=== PATIENT | male | born 1980 | race Caucasian/White ===

== ENCOUNTER → 2019-02-04 | Outpatient (CLI) | payer SELFPAY ==
[~2019-02-04] MED LIST: HOLD METFORMIN - RECEIVED CONTRAST 20 ML VIAL IV SCH; IOHEXOL 350 MG/ML 100 ML (OMNIPAQUE 350) VIAL IV ONE; NS 100 ML (IVPB) BAG IV ONE
--- NOTE | 2019-02-04 16:39 | Diagnostic Imaging Report ---
PROCEDURE: CT abdomen and pelvis with contrast. TECHNIQUE: Multiple contiguous axial images were obtained through the abdomen and pelvis after administration of intravenous contrast. Auto Exposure Controls were utilized during the CT exam to meet ALARA standards for radiation dose reduction. INDICATION: Left upper quadrant abdominal pain and persistent nausea COMPARISON: There is no previous study available at this time for comparison. FINDINGS: There is no focal hepatic or splenic abnormality. Gallbladder is unremarkable in appearance. There is no evidence of pancreatic or adrenal gland abnormality. There is an approximately 1 cm cyst in the central left kidney. Kidneys are otherwise unremarkable in appearance. There is no evidence of free fluid. There is paucity of mesenteric and omental fat with moderate amount of colonic stool seen diffusely. There is no evidence of organized fluid collection. The partially opacified urinary bladder is unremarkable. IMPRESSION: No acute abnormality. Dictated by: Dictated on workstation # [id number]
== END ==
LOC: RAD 15:11
PROVIDERS: ATTEND Nurse Practitioner
DX: R10.12 Left upper quadrant pain (principal); R11.0 Nausea
CPT/HCPCS: 74177

== ENCOUNTER 2019-08-03 19:08 | Emergency (ER) | payer SELFPAY ==
[~2019-08-03] VITALS: Ht 167.7 cm; Wt 54.4 kg
[2019-08-03] MEDS ORDERED: ACETAMINOPHEN 500 MG TAB (TYLENOL) PO STA (19:50)
[2019-08-03] MEDS ORDERED: LACTATED RINGERS 1,000 ML IV ONE ×2 (19:50→21:35)
[2019-08-03] MEDS ORDERED: KETOROLAC 30 MG/ML VIAL IVP STA (19:50)
[2019-08-03] MEDS ORDERED: ONDANSETRON 4 MG/2 ML (SDV) Z0FRAN IVP ONE (20:00)
--- NOTE | 2019-08-03 20:00 | ED Abdominal Pain ---
General Chief Complaint: Abdominal/GI Problems Stated Complaint: ABD PAIN, FEVER, NECK PAIN Nursing Triage Note: PT TO ED W/ C/O LUQ ABD PAIN ONSET YESTERDAY, WORSE TODAY. PT'S S.O. REPORTS THEY WERE SENT TO THIS ED FROM URGENT CARE PT HAD AN ELEVATED TEMP. PT STATES HAD SIMILAR SYMPTOMS LAST SUMMER. NO OTHER C/O VOICED TO THIS RN. PT DOES ADMIT TO SMOKING METH ET MARIJUANA W/IN THE LAST WEEK. Sepsis Screen: No Definite Risk Source of Information: Patient Exam Limitations: No Limitations History of Present Illness Date Seen by Provider: Aug 03, 2019 Time Seen by Provider: 19:42 Initial Comments Here with report of acute onset of left upper quadrant abdominal pain that was yesterday and worsened today. Went to urgent care and was sent over here because he had a high fever. He arrives afebrile. He's had on and off left upper quadrant abdominal pain over the last year. Has had workup for that including CT scan last month that was negative as well as ultrasound that was reportedly negative. Also complains of neck pain that started a few weeks ago was quite bad at the time of onset but it's better now. He still feels it but it is better. Notes the pain is at the base of the neck laterally. 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 Timing/Duration: 1-2 Days Severity/Quality: Moderate, Aching Location: LUQ Radiation: No Radiation Activities at Onset: None Modifying Factors: Worsens With Other (no aggravating or relieving factors) Associated Symptoms: No Back Pain, No Chest Pain; Fever/Chills, Fatigue, Nausea/Vomiting; No Shortness of Air, No Weakness Allergies and Home Medications Allergies Coded Allergies: No Allergy Information Available (Unverified , 02/04/19) Patient Home Medication List Home Medication List Reviewed: Yes Review of Systems Review of Systems Constitutional: see HPI, chills, fever EENTM: No Symptoms Reported Respiratory: Denies Cough, Denies Shortness of Air Cardiovascular: Denies Chest Pain, Denies Edema Gastrointestinal: Denies Diarrhea; Nausea; Denies Vomiting Genitourinary: No Symptoms Reported Musculoskeletal: see HPI, muscle pain; No muscle weakness; neck pain Skin: no symptoms reported Psychiatric/Neurological: No Symptoms Reported All Other Systems Reviewed Negative Unless Noted: Yes Past Ngsgacd-Gozmrg-Bwqcwu Hx Past Med/Social Hx: Reviewed Nursing Past Med/Soc Hx Patient Social History Alcohol Use: Denies Use Recreational Drug Use: Yes Drug of Choice: MARIJUANA, METH Smoking Status: Current Everyday Smoker Type Used: Cigarettes Recent Foreign Travel: No Contact w/Someone Who Travel: No Recent Infectious Disease Expo: No Physical Abuse: No Sexual Abuse: No Mistreated: No Fear: No Past Medical History Surgeries: No Respiratory: No Cardiac: No Neurological: No Genitourinary: No Gastrointestinal: No Musculoskeletal: No Endocrine: No HEENT: No Cancer: No Psychosocial: No Family Medical History Reviewed Nursing Family Hx No Pertinent Family Hx Physical Exam Vital Signs Vital Signs - First Documented 08/03/19 19:18 Temp 37.2 Pulse 111 Resp 20 B/P (MAP) 124/87 (99) Pulse Ox 100 O2 Delivery Room Air Capillary Refill : Less Than 3 Seconds Height/Weight/BMI Height: '" Weight: lbs. oz. kg; 19.00 BMI Method: General Appearance: WD/WN, no apparent distress HEENT: PERRL/EOMI, TMs normal, pharynx normal Neck: full range of motion, supple Respiratory: lungs clear, normal breath sounds Cardiovascular: no murmur, tachycardia Peripheral Pulses: 2+ Dorsalis Pedis (R), 2+ Left Dors-Pedis (L), 2+ Radial Pulses (R), 2+ Radial Pulses (L) Gastrointestinal: soft; No guarding, No rebound; tenderness (mild left upper quadrant) Extremities: non-tender, normal inspection Back: normal inspection, no CVA tenderness, no vertebral tenderness Neurologic/Psychiatric: alert, oriented x 3 Skin: normal color, warm/dry Focused Exam Lactate Level 08/03/19 21:06: Lactic Acid Level 2.83*H Lactic Acid Level Laboratory Tests Test 08/03/19 21:06 Lactic Acid Level 2.83 MMOL/L (0.50-2.00) *H Progress/Results/Core Measures Results/Orders Lab Results Laboratory Tests Test 08/03/19 19:49 08/03/19 21:06 Range/Units White Blood Count 18.2 H 4.3-11.0 10^3/uL Red Blood Count 5.17 4.35-5.85 10^6/uL Hemoglobin 15.8 13.3-17.7 G/DL Hematocrit 46 40-54 % Mean Corpuscular Volume 88 80-99 FL Mean Corpuscular Hemoglobin 31 25-34 PG Mean Corpuscular Hemoglobin Concent 35 32-36 G/DL Red Cell Distribution Width 12.9 10.0-14.5 % Platelet Count 494 H 130-400 10^3/uL Mean Platelet Volume 8.8 7.4-10.4 FL Neutrophils (%) (Auto) 86 H 42-75 % Lymphocytes (%) (Auto) 6 L 12-44 % Monocytes (%) (Auto) 7 0-12 % Eosinophils (%) (Auto) 0 0-10 % Basophils (%) (Auto) 0 0-10 % Neutrophils # (Auto) 15.6 H 1.8-7.8 X 10^3 Lymphocytes # (Auto) 1.2 1.0-4.0 X 10^3 Monocytes # (Auto) 1.3 H 0.0-1.0 X 10^3 Eosinophils # (Auto) 0.1 0.0-0.3 10^3/uL Basophils # (Auto) 0.0 0.0-0.1 10^3/uL Neutrophils % (Manual) 82 % Lymphocytes % (Manual) 7 % Monocytes % (Manual) 10 % Eosinophils % (Manual) 0 % Basophils % (Manual) 0 % Band Neutrophils 1 % Smudge Cells SLIGHT Sodium Level 139 135-145 MMOL/L Potassium Level 4.3 3.6-5.0 MMOL/L Chloride Level 104 98-107 MMOL/L Carbon Dioxide Level 22 21-32 MMOL/L Anion Gap 13 5-14 MMOL/L Blood Urea Nitrogen 13 7-18 MG/DL Creatinine 0.80 0.60-1.30 MG/DL Estimat Glomerular Filtration Rate > 60 BUN/Creatinine Ratio 16 Glucose Level 97 70-105 MG/DL Calcium Level 9.5 8.5-10.1 MG/DL Corrected Calcium 9.3 8.5-10.1 MG/DL Magnesium Level 1.9 1.6-2.4 MG/DL Total Bilirubin 0.9 0.1-1.0 MG/DL Aspartate Amino Transf (AST/SGOT) 16 5-34 U/L Alanine Aminotransferase (ALT/SGPT) 15 0-55 U/L Alkaline Phosphatase 67 40-136 U/L C-Reactive Protein High Sensitivity 0.56 H 0.00-0.50 MG/DL Total Protein 7.4 6.4-8.2 GM/DL Albumin 4.3 3.2-4.5 GM/DL Amylase Level 69 25-125 U/L Lipase 39 8-78 U/L Urine Color YELLOW Urine Clarity CLEAR Urine pH 7.5 5-9 Urine Specific [place] 1.010 L 1.016-1.022 Urine Protein NEGATIVE NEGATIVE Urine Glucose (UA) NEGATIVE NEGATIVE Urine Ketones NEGATIVE NEGATIVE Urine Nitrite NEGATIVE NEGATIVE Urine Bilirubin NEGATIVE NEGATIVE Urine Urobilinogen 0.2 < = 1.0 MG/DL Urine Leukocyte Esterase NEGATIVE NEGATIVE Urine RBC (Auto) NEGATIVE NEGATIVE Urine RBC NONE /HPF Urine WBC NONE /HPF Urine Squamous Epithelial Cells RARE /HPF Urine Crystals NONE /LPF Urine Bacteria NEGATIVE /HPF Urine Casts NONE /LPF Urine Mucus NEGATIVE /LPF Urine Culture Indicated NO Lactic Acid Level 2.83 *H 0.50-2.00 MMOL/L Micro Results Microbiology 08/03/19 Blood Culture - Preliminary, Resulted No growth 08/03/19 Blood Culture - Preliminary, Resulted No growth 08/03/19 Influenza Types A,B Antigen ([facility]) - Final, Complete My Orders Orders - JOSE ARMANDO TRAN MD Amylase (08/03/19 19:50) Cbc With Automated Diff (08/03/19 19:50) Comprehensive Metabolic Panel (08/03/19 19:50) Hs C Reactive Protein (08/03/19 19:50) Lipase (08/03/19 19:50) Magnesium (08/03/19 19:50) Ua Culture If Indicated (08/03/19 19:50) Influenza A And B Antigens (08/03/19 19:50) Ed Iv/Invasive Line Start (08/03/19 19:50) Lactated Ringers (Lr 1000 Ml Iv Solution (08/03/19 19:50) Ondansetron Injection (Zofran Injectio (08/03/19 20:00) Acetaminophen Tablet (Tylenol Tablet) (08/03/19 19:50) Ketorolac Injection (Toradol Injection) (08/03/19 19:50) Manual Differential (08/03/19 19:49) Ct Abdomen/Pelvis W (08/03/19 20:25) Chest Pa/Lat (2 View) (08/03/19 20:25) Lactic Acid Analyzer (08/03/19 20:25) Blood Culture (08/03/19 20:25) Iohexol Injection (Omnipaque 350 Mg/Ml 1 (08/03/19 20:30) Received Contrast (Hold Metformin- Contr (08/03/19 20:30) Sodium Chloride Flush (Catheter Flush Sy (08/03/19 20:30) Ns (Ivpb) (Sodium Chloride 0.9% Ivpb Bag (08/03/19 20:30) Lidocaine 2% Viscous 15 Ml (Xylocaine Vi (08/03/19 21:30) Antacid Suspension (Mylanta Suspension (08/03/19 21:30) Famotidine Injection (Pepcid Injection) (08/03/19 21:20) Lactated Ringers (Lr 1000 Ml Iv Solution (08/03/19 21:35) Fentanyl Injection (Sublimaze Injection (08/03/19 21:36) Medications Given in ED Vital Signs/I&O 08/03/19 08/03/19 08/03/19 08/03/19 19:18 20:06 21:15 21:53 Temp 37.2 37.6 37.6 37.6 Pulse 111 111 99 Resp 20 20 20 B/P (MAP) 124/87 (99) 124/87 124/85 (99) Pulse Ox 100 100 99 O2 Delivery Room Air Room Air Blood Pressure Mean: 99 Progress Progress Note : Progress Note Seen and evaluated. IV, labs, UA, LR 1 L bolus, Toradol 30 mg IV, Tylenol 1 g by mouth, Zofran 4 mg by mouth ordered. I have reviewed CT scan that he says was done a month ago and it was actually done 6 months ago. It was negative for any acute findings. Monitor patient. 2120: So far workup is negative except for elevated white count. Does report that he had markedly increasing his pain after eating a banana for lunch and has had problems with acid and this may be more of the issue. CT does shows constipation and he does have a full stomach. He states he has not eaten much today but with the constipation this may just be slow transit. We will give Pepcid 20 mg IV and GI cocktail. I did discuss with him the importance of follow-up with a surgeon for further evaluation including endoscopy. He will try to figure out a way to do that given his finances. UA is pending. Monitor patient. 2140: Patient overall feels much better. Lactic acid noted to be slightly elevated. I discussed this with the patient. I would like to do repeat fluids and recheck that but he does not want to stay. We discussed risk and benefits of this including that he may have something more significant. He states that he will come back if he has any problems but overall he feels better now. He will continue with the instructions that were given and return for any concerns. I again encouraged him to stay and he would like to go ahead and go. Discharged home with return precautions. Patient verbalize understanding instructions and agreement with plan. Diagnostic Imaging Diagonstic Imaging: CT Plain Films/CT/US/NM/MRI: abdomen, pelvis Comments [facility] [place] [place] NAME: NELLY PEREZ [facility] REC#: [id number] PT STATUS: REG ER : 1980 PHYSICIAN: JOSE ARMANDO TRAN MD ADMIT DATE: 08/03/19/ER Draft Date of Exam:08/03/19 CT ABDOMEN/PELVIS W PROCEDURE: CT abdomen and pelvis with contrast. TECHNIQUE: Multiple contiguous axial images were obtained through the abdomen and pelvis after administration of intravenous contrast. Auto Exposure Controls were utilized during the CT exam to meet ALARA standards for radiation dose reduction. INDICATION: Pain in the left lower chest and left upper quadrant. COMPARISON: 02/04/2019. FINDINGS: The lung bases are clear. The liver, gallbladder, pancreas, spleen, adrenals, kidneys, collecting systems and bladder are negative. No free intraperitoneal air or fluid. No lymphadenopathy. No evidence of bowel obstruction. There is a large amount of stool throughout the colon. Osseous structures are intact. IMPRESSION: 1. No acute CT findings in the abdomen or pelvis. 2. Large amount of stool in the colon would be compatible with constipation. Dictated on workstation # [id number] Dict: 08/03/192057 Trans: 08/03/192100 MELVINA [id number] Interpreted by: CURTIS GARIBAY MD Electronically signed by: Diagonstic Imaging: Xray Plain Films/CT/US/NM/MRI: chest Comments [facility] [place] [place] NAME: NELLY PEREZ [facility] REC#: [id number] PT STATUS: REG ER : 1980 PHYSICIAN: JOSE ARMANDO TRAN MD ADMIT DATE: 08/03/19/ER Draft Date of Exam:08/03/19 CHEST PA/LAT (2 VIEW) EXAM: CHEST PA/LAT (2 VIEW) INDICATION: Pain in the left lower chest and left upper quadrant. COMPARISON: None. FINDINGS: Normal heart size and pulmonary vascularity. No dense consolidation, pleural effusion or pneumothorax. No acute osseous findings. IMPRESSION: Negative chest. Dictated on workstation # [id number] Dict: 08/03/192099 Trans: 08/03/19 2102 MELVINA [id number] Interpreted by: CURTIS GARIBAY MD Electronically signed by: Departure Impression Primary Impression: Abdominal pain, left upper quadrant Additional Impression: Constipation Qualified Codes: K59.00 - Constipation, unspecified Disposition: HOME, SELF-CARE Condition: Stable Departure-Patient Inst. Decision time for Depature: 21:24 Referrals: QUINN OVALLES DO NO,LOCAL PHYSICIAN (PCP) Primary Care Physician Patient Instructions: Acute Abdomen (Belly Pain), Adult (DC), Constipation, Adult (DC) Add. Discharge Instructions: All discharge instructions reviewed with patient and/or family. Voiced understanding. Drink plenty of fluids. Clear light diet for the next 24 hours and then advance as tolerated. You lactic acid was slightly elevated and we did not get a second exam on that. It is very important that he return if you have any worsening at all. You may take cktf-vmi-captrin omeprazole 20 mg daily and you may try this for up to the next 6 weeks. You may also take famotidine or Pepcid 20 mg once or twice daily as needed for stomach upset. For the constipation, increase fluid intake and fiber intake. You may use MiraLAX or the generic one capful twice daily for the next 3 days and then one capful daily thereafter as needed to produce normal stools. You may increase or decrease the dose as needed to get normal bowel habits. You should follow-up with the surgeon listed order choosing for further evaluation including possible upper endoscopy to evaluate for ulcers. You may also follow-up with [facility] for referral to a surgeon. Return for worse pain, fever, vomiting, weakness, breathing problems or other concerns as needed. You may take Tylenol/acetaminophen 1000 mg every 8 hours as needed for pain. Try to avoid ibuprofen as this may irritate your stomach. Avoid acidic foods, spicy or fatty foods and other foods that cause stomach upset. JOSE ARMANDO TRAN MD Aug 03, 2019 20:00
[2019-08-03 20:01] LABS: BASOPHILS % (AUTO) 0 % (0-10); EOSINOPHILS # (AUTO) 0.1 10^3/uL (0.0-0.3); EOSINOPHILS % (AUTO) 0 % (0-10); HEMATOCRIT 46 % (40-54); HEMOGLOBIN 15.8 G/DL (13.3-17.7); LYMPHOCYTES # (AUTO) 1.2 X 10^3 (1.0-4.0); LYMPHOCYTES % (AUTO) 6 % (12-44); MEAN CORPUSCULAR HEMOGLOBIN 31 PG (25-34); MEAN CORPUSCULAR HGB CONC 35 G/DL (32-36); MEAN CORPUSCULAR VOLUME 88 FL (80-99); MEAN PLATELET VOLUME 8.8 FL (7.4-10.4); MONOCYTES # (AUTO) 1.3 X 10^3 (0.0-1.0); MONOCYTES % (AUTO) 7 % (0-12); NEUTROPHILS # (AUTO) 15.6 X 10^3 (1.8-7.8); NEUTROPHILS % (AUTO) 86 % (42-75); PLATELET COUNT 494 10^3/uL (130-400); RED CELL DISTRIBUTION WIDTH 12.9 % (10.0-14.5); WHITE BLOOD COUNT 18.2 10^3/uL (4.3-11.0)
[2019-08-03 20:18] LABS: ALANINE AMINOTRANSFERASE 15 U/L (0-55); ALBUMIN 4.3 GM/DL (3.2-4.5); ALKALINE PHOSPHATASE 67 U/L (40-136); AMYLASE 69 U/L (25-125); BILIRUBIN,TOTAL 0.9 MG/DL (0.1-1.0); BUN/CREATININE RATIO 16; CALCIUM 9.5 MG/DL (8.5-10.1); CARBON DIOXIDE 22 MMOL/L (21-32); CHLORIDE 104 MMOL/L (98-107); GFR ESTIMATED > 60; GLUCOSE 97 MG/DL (70-105); LIPASE 39 U/L (8-78); MAGNESIUM 1.9 MG/DL (1.6-2.4); POTASSIUM 4.3 MMOL/L (3.6-5.0); SODIUM 139 MMOL/L (135-145); TOTAL PROTEIN 7.4 GM/DL (6.4-8.2)
[2019-08-03 20:24] LABS: BAND NEUTROPHILS 1 %; BASOPHILS % (MANUAL) 0 %; EOSINOPHILS % (MANUAL) 0 %; LYMPHOCYTES % (MANUAL) 7 %; MONOCYTES % (MANUAL) 10 %; NEUTROPHILS % (MANUAL) 82 %; SMUDGE CELLS SLIGHT
[2019-08-03] MEDS ORDERED: CATHETER FLUSH 10 ML SYR IV PRN (20:30)
[2019-08-03] MEDS ORDERED: IOHEXOL 350 MG/ML 100 ML (OMNIPAQUE 350) VIAL IV ONE (20:30)
[2019-08-03] MEDS ORDERED: NS 100 ML (IVPB) BAG IV ONE (20:30)
[2019-08-03] MEDS ORDERED: HOLD METFORMIN - RECEIVED CONTRAST 20 ML VIAL IV SCH (20:30)
--- NOTE | 2019-08-03 21:02 | Diagnostic Imaging Report ---
PROCEDURE: CT abdomen and pelvis with contrast. TECHNIQUE: Multiple contiguous axial images were obtained through the abdomen and pelvis after administration of intravenous contrast. Auto Exposure Controls were utilized during the CT exam to meet ALARA standards for radiation dose reduction. INDICATION: Pain in the left lower chest and left upper quadrant. COMPARISON: 02/04/2019. FINDINGS: The lung bases are clear. The liver, gallbladder, pancreas, spleen, adrenals, kidneys, collecting systems and bladder are negative. No free intraperitoneal air or fluid. No lymphadenopathy. No evidence of bowel obstruction. There is a large amount of stool throughout the colon. Osseous structures are intact. IMPRESSION: 1. No acute CT findings in the abdomen or pelvis. 2. Large amount of stool in the colon would be compatible with constipation. Dictated by: Dictated on workstation # [id number]
--- NOTE | 2019-08-03 21:03 | Diagnostic Imaging Report ---
EXAM: CHEST PA/LAT (2 VIEW) INDICATION: Pain in the left lower chest and left upper quadrant. COMPARISON: None. FINDINGS: Normal heart size and pulmonary vascularity. No dense consolidation, pleural effusion or pneumothorax. No acute osseous findings. IMPRESSION: Negative chest. Dictated by: Dictated on workstation # [id number]
[2019-08-03 21:17] LABS: BILIRUBIN,URINE NEGATIVE (NEGATIVE); CLARITY,URINE CLEAR; COLOR,URINE YELLOW; GLUCOSE, URINE (UA) NEGATIVE (NEGATIVE); KETONES,URINE NEGATIVE (NEGATIVE); LEUKOCYTE ESTERASE ,URINE NEGATIVE (NEGATIVE); NITRITE,URINE NEGATIVE (NEGATIVE); PH,URINE 7.5 (5-9); PROTEIN,URINE NEGATIVE (NEGATIVE)
[2019-08-03] MEDS ORDERED: FAMOTIDINE 20MG/2ML IV (PEPCID) IV STA (21:20)
[2019-08-03 21:23] LABS: BACTERIA,URINE NEGATIVE /HPF; SQUAMOUS EPITHELIAL CELL,UR RARE /HPF
[2019-08-03] MEDS ORDERED: ANTACID SUSP 30 ML UDC (MYLANTA) PO ONE (21:30)
[2019-08-03] MEDS ORDERED: LIDOCAINE 2% VISCOUS 15 ML UDC PO ONE (21:30)
[2019-08-03] MEDS ORDERED: fentaNYL INJECTION 100 MCG/2 ML AMP IVP STA (21:36)
--- NOTE | 2019-08-03 21:37 | NUR ---
PT REFUSED GI COCKTAIL AND FENTANYL DOSE, PT STATES HE FEELS MUCH BETTER AND WOULD JUST LIKE HIS DISCHARGE PAPERWORK, PROVIDER NOTIFIED.
[2019-08-03 21:53] VITALS: BP 124/85
== END 2019-08-03 21:39 | disposition home or self-care (01) ==
LOC: EDUNIT# 19:08 → ER 19:10
DX: K59.00 Constipation, unspecified (principal); F17.210 Nicotine dependence, cigarettes, uncomplicated
CPT/HCPCS: 36415; 71046; 74177; 80053; 81000; 82150; 83605; 83690; 83735; 85007; 85027; 86141; 87040; 87804; 96361; 96374; 96375

== ENCOUNTER 2021-01-28 09:24 | Emergency (ER) | payer SELFPAY ==
[~2021-01-28] VITALS: Ht 167 cm; Wt 56.0 kg
[2021-01-28] MEDS ORDERED: ACETAMINOPHEN 500 MG TAB (TYLENOL) ONE (09:48)
[2021-01-28] MEDS ORDERED: ONDANSETRON 4 MG/2 ML (SDV) Z0FRAN ONE (09:50)
[2021-01-28] MEDS ORDERED: NS IV 1000 ML 1,000 ML ONE (09:51)
--- NOTE | 2021-01-28 09:57 | ED General ---
General Chief Complaint: Cough/Cold/Flu Symptoms Stated Complaint: LOSS OF TASTE, FEVER,COUGH, Nursing Triage Note: ARRIVED VIA AMB TO ROOM 10 WITH COMPLAINTS OF COUGH, FEVER, BODY ACHES FOR X2 DAYS. STATES HE PASSED OUT YESTERDAY. History of Present Illness Date Seen by Provider: Jan 28, 2021 Time Seen by Provider: 09:45 Initial Comments Nelly is a 40-year-old male who presents to the emergency department today with a chief complaint of cough, fever, body aches and a syncopal episode yesterday. Symptoms have been ongoing for a couple of days. He has had decreased appetite over the course of the last couple of days. He denies any injury is related to his syncopal episode yesterday. He has not taken any medications for his fever s. He is not Covid vaccinated. He complains that he feels like his ear is "bleeding". He complains of a little burning with urination. No diarrhea. No rashes or joint pain. He is having body aches. Temperature on arrival is a little bit greater than 102. He appears to feel bad. His room air oxygen saturation on my evaluation is 95%. He is slightly tachycardic in the 120s. Blood pressure is good. No chronic medical conditions, does not take any medications on a daily basis. All other review of systems reviewed and negative except as stated above. Timing/Duration: 1-2 Days Severity: Moderate Associated Systoms: Cough, Fever/Chills, Headaches, Loss of Appetite, Malaise Allergies and Home Medications Allergies Coded Allergies: No Allergy Information Available (Unverified , 02/04/19) Patient Home Medication List Home Medication List Reviewed: Yes Review of Systems Review of Systems Constitutional: see HPI EENTM: ear pain Respiratory: cough, short of breath Cardiovascular: no symptoms reported Gastrointestinal: nausea Genitourinary: dysuria Musculoskeletal: muscle pain, muscle cramps Skin: no symptoms reported Psychiatric/Neurological: No Symptoms Reported All Other Systems Reviewed Negative Unless Noted: Yes Past Rgydydb-Ymujqr-Ltmpgy Hx Patient Social History Smoking Status: Former Smoker Substance use?: No Alcohol Use?: No Past Medical History Surgeries: No Respiratory: No Cardiac: No Neurological: No Genitourinary: No Gastrointestinal: No Musculoskeletal: No Endocrine: No HEENT: No Cancer: No Psychosocial: No Family Medical History No Pertinent Family Hx Physical Exam Vital Signs Vital Signs - First Documented 01/28/21 09:35 Temp 39.3 Pulse 117 Resp 18 B/P (MAP) 113/74 (87) Pulse Ox 95 O2 Delivery Room Air Capillary Refill : Less Than 3 Seconds Height, Weight, BMI Height: '" Weight: lbs. oz. kg; 20.00 BMI Method: General Appearance: No Apparent Distress, WD/WN Eyes: Bilateral Eye Normal Inspection, Bilateral Eye PERRL, Bilateral Eye EOMI HEENT: TMs Normal (Slight effusion behind the left TM), Normal ENT Inspection (Dry oral mucosa) Neck: Non Tender, Supple Respiratory: No Accessory Muscle Use, No Respiratory Distress, Crackles (Crackles auscultated anteriorly of the left lung, no respiratory distress is noted, no wheezing) Cardiovascular: Regular Rate, Rhythm, Tachycardia Gastrointestinal: Normal Bowel Sounds, Non Tender, Soft Extremity: Normal Inspection, Normal Range of Motion, Non Tender, No Calf Tenderness Neurologic/Psychiatric: Alert, Oriented x3, No Motor/Sensory Deficits, Normal Mood/Affect Skin: Normal Color, Warm/Dry Focused Exam Lactate Level 01/28/21 09:44: Lactic Acid Level 0.93 Lactic Acid Level Laboratory Tests Test 01/28/21 09:44 Lactic Acid Level 0.93 MMOL/L (0.50-2.00) Progress/Results/Core Measures Suspected Sepsis SIRS Temperature: Pulse: 117 Respiratory Rate: 18 Laboratory Tests 01/28/21 09:44: White Blood Count 12.8H Blood Pressure 113 /74 Mean: 87 01/28/21 09:44: Lactic Acid Level 0.93 Laboratory Tests 01/28/21 09:44: Creatinine 1.06, INR Comment 1.0, Platelet Count 243, Total Bilirubin 0.7 Results/Orders Lab Results Laboratory Tests Test 01/28/21 09:37 01/28/21 09:44 Range/Units SARS-CoV-2 RNA (RT-PCR) Detected H Not Detecte White Blood Count 12.8 H 4.3-11.0 10^3/uL Red Blood Count 4.87 4.30-5.52 10^6/uL Hemoglobin 14.5 13.3-17.7 g/dL Hematocrit 44 40-54 % Mean Corpuscular Volume 91 80-99 fL Mean Corpuscular Hemoglobin 30 25-34 pg Mean Corpuscular Hemoglobin Concent 33 32-36 g/dL Red Cell Distribution Width 12.8 10.0-14.5 % Platelet Count 243 130-400 10^3/uL Mean Platelet Volume 9.7 9.0-12.2 fL Immature Granulocyte % (Auto) 1 % Neutrophils (%) (Auto) 92 H 42-75 % Lymphocytes (%) (Auto) 3 L 12-44 % Monocytes (%) (Auto) 5 0-12 % Eosinophils (%) (Auto) 0 0-10 % Basophils (%) (Auto) 0 0-10 % Neutrophils # (Auto) 11.7 H 1.8-7.8 10^3/uL Lymphocytes # (Auto) 0.4 L 1.0-4.0 10^3/uL Monocytes # (Auto) 0.6 0.0-1.0 10^3/uL Eosinophils # (Auto) 0.0 0.0-0.3 10^3/uL Basophils # (Auto) 0.0 0.0-0.1 10^3/uL Immature Granulocyte # (Auto) 0.1 0.0-0.1 10^3/uL Neutrophils % (Manual) 86 % Lymphocytes % (Manual) 4 % Monocytes % (Manual) 2 % Eosinophils % (Manual) 0 % Basophils % (Manual) 0 % Band Neutrophils 8 % Blood Morphology Comment NORMAL Prothrombin Time 13.0 12.2-14.7 SEC INR Comment 1.0 0.8-1.4 Activated Partial Thromboplast Time 34 24-35 SEC Sodium Level 134 L 135-145 MMOL/L Potassium Level 4.6 3.6-5.0 MMOL/L Chloride Level 99 98-107 MMOL/L Carbon Dioxide Level 23 21-32 MMOL/L Anion Gap 12 5-14 MMOL/L Blood Urea Nitrogen 15 7-18 MG/DL Creatinine 1.06 0.60-1.30 MG/DL Estimat Glomerular Filtration Rate > 60 BUN/Creatinine Ratio 14 Glucose Level 116 H 70-105 MG/DL Lactic Acid Level 0.93 0.50-2.00 MMOL/L Calcium Level 8.5 8.5-10.1 MG/DL Corrected Calcium 8.7 8.5-10.1 MG/DL Total Bilirubin 0.7 0.1-1.0 MG/DL Aspartate Amino Transf (AST/SGOT) 26 5-34 U/L Alanine Aminotransferase (ALT/SGPT) 18 0-55 U/L Alkaline Phosphatase 60 40-136 U/L Total Protein 7.0 6.4-8.2 GM/DL Albumin 3.8 3.2-4.5 GM/DL Procalcitonin 2.75 H <0.10 NG/ML My Orders Orders - BELIA DORMAN MD Acetaminophen Tablet (Tylenol Tablet) (01/28/21 09:48) Cbc With Automated Diff (01/28/21 09:51) Comprehensive Metabolic Panel (01/28/21 09:51) Blood Culture (01/28/21 09:51) Sputum Culture (01/28/21:51) Urinalysis (01/28/21:51) Urine Culture (01/28/21:51) Protime With Inr (01/28/21:51) Partial Thromboplastin Time (01/28/21 09:51) Chest 1 View, Ap/Pa Only (01/28/21 09:51) Ed Iv/Invasive Line Start (01/28/21 09:51) Ed Iv/Invasive Line Start (01/28/21 09:51) Vital Signs Adult Sepsis Patie Q15M (01/28/21 09:51) O2 (01/28/21 09:51) Remove Rings In Anticipation O (01/28/21 09:51) Lactic Acid Analyzer (01/28/21 09:51) Procalcitonin (Pct) (01/28/21 09:51) Acetaminophen Tablet (Tylenol Tablet) (01/28/21 10:00) Ns Iv 1000 Ml (Sodium Chloride 0.9%) (01/28/21 10:00) Ondansetron Injection (Zofran Injectio (01/28/21 10:00) Ondansetron Injection (Zofran Injectio (01/28/21 09:50) Ns Iv 1000 Ml (Sodium Chloride 0.9%) (01/28/21 09:51) Covid 19 Inhouse Test (01/28/21 09:57) Manual Differential (01/28/21 09:44) Medications Given in ED Current Medications Medications Dose Ordered Sig/Mita Route Start Time Stop Time Status Last Admin Dose Admin Acetaminophen 1,000 mg ONCE ONCE PO 01/28/21 10:00 01/28/21 10:01 DC 01/28/21 09:58 1,000 MG Ondansetron HCl 4 mg ONCE ONCE IVP 01/28/21 10:00 01/28/21 10:01 DC 01/28/21 09:58 4 MG Vital Signs/I&O 01/28/21 09:35 Temp 39.3 Pulse 117 Resp 18 B/P (MAP) 113/74 (87) Pulse Ox 95 O2 Delivery Room Air Capillary Refill : Less Than 3 Seconds Blood Pressure Mean: 87 Progress Note : Time: 12:16 Progress Note Reevaluated the patient. He is still little tachycardic heart rate 110-114. Temp down to 100.6 He has received a liter of fluids and a gram of Tylenol. Patient's labs have been reviewed, CBC is within normal limits. Chemistry is good his pro calcitonin is mildly elevated at 2. Lactic acid is less than 1. Patient's chest x-ray is consistent with Covid pneumonia. I have discussed the monoclonal antibody treatment with the patient and provided him with the fact sheet for patients and caregivers. I have discussed with him the risks of administration including allergic reaction and possible worsening condition. He verbalizes understanding and wishes to proceed. The order form for the monoclonal antibody has been filled out to and he will be set up to receive an infusion hopefully tomorrow. Patient will be sent home also on Zithromax secondary to his elevated procalcitonin and patchy infiltrate to cover for bacterial pneumonia. He is given good return precautions. He verbalizes understanding. All questions have been sought and answered. Diagnostic Imaging Diagonstic Imaging: Xray Plain Films/CT/US/NM/MRI: chest Comments [facility], [place] NAME: NELLY PEREZ [facility] REC#: [id number] PT STATUS: REG ER : 1980 PHYSICIAN: BELIA DORMAN MD ADMIT DATE: 01/28/21/ER Draft Date of Exam:01/28/21 CHEST 1 VIEW, AP/PA ONLY INDICATION: Covid positive. Cough with flu symptoms. Comparison with 08/03/2019. FINDINGS: There are scattered bilateral alveolar infiltrates predominantly in the perihilar region bilaterally. The lungs are well-aerated. No pneumothorax or pleural effusion. The heart is not enlarged. IMPRESSION: Bilateral patchy pneumonia consistent with Covid positive diagnosis. Dictated on workstation # [id number] Dict: 01/28/21 1107 Trans: 01/28/21 1111 [facility] [id number] Interpreted by: ARTURO MARSH MD Electronically signed by: Departure Impression Primary Impression: Pneumonia due to COVID-19 virus Disposition: 01 HOME, SELF-CARE Condition: Stable Departure-Patient Inst. Decision time for Depature: 12:23 Referrals: [facility] [place] [facility],LOCAL PHYSICIAN (PCP) Primary Care Physician Patient Instructions: COVID-19 ED Add. Discharge Instructions: Drink plenty of fluids to stay well-hydrated. Take yfaz-gqu-ceabmpz ibuprofen, 3 tablets which is 600 mg every 6-8 hours as needed with food for fever over 100.4 and body aches. You can also take Tylenol for fever and body aches. Take the a azithromycin, antibiotic to cover for bacterial infections in your lungs. You have been diagnosed with Covid pneumonia today. You will need to quarantine for 10 days. Come back to the emergency room for any worsening symptoms, shortness of breath or other emergent concerns. We have written an order for you to receive the monoclonal antibody for treatment of COVID-19. Please come back in for your scheduled infusion. Scripts Azithromycin (Azithromycin) 250 Mg Tablet 250 MG PO UD, #6 TAB TAKE 2 TABLETS ON DAY ONE THEN TAKE 1 TABLET DAILY FOR FOUR MORE DAYS Prov: BELIA DORMAN MD 01/28/21 BELIA DORMAN MD Jan 28, 2021 09:57
[2021-01-28] MEDS ORDERED: NS IV 1000 ML 1,000 ML IV SCH (10:00)
[2021-01-28] MEDS ORDERED: ACETAMINOPHEN 500 MG TAB (TYLENOL) PO ONE (10:00)
[2021-01-28] MEDS ORDERED: ONDANSETRON 4 MG/2 ML (SDV) Z0FRAN IVP ONE (10:00)
[2021-01-28 10:04] LABS: BASOPHILS % (AUTO) 0 % (0-10); EOSINOPHILS % (AUTO) 0 % (0-10); HEMATOCRIT 44 % (40-54); HEMOGLOBIN 14.5 g/dL (13.3-17.7); LYMPHOCYTES # (AUTO) 0.4 10^3/uL (1.0-4.0); LYMPHOCYTES % (AUTO) 3 % (12-44); MEAN CORPUSCULAR HEMOGLOBIN 30 pg (25-34); MEAN CORPUSCULAR HGB CONC 33 g/dL (32-36); MEAN CORPUSCULAR VOLUME 91 fL (80-99); MEAN PLATELET VOLUME 9.7 fL (9.0-12.2); MONOCYTES # (AUTO) 0.6 10^3/uL (0.0-1.0); MONOCYTES % (AUTO) 5 % (0-12); NEUTROPHILS # (AUTO) 11.7 10^3/uL (1.8-7.8); NEUTROPHILS % (AUTO) 92 % (42-75); PLATELET COUNT 243 10^3/uL (130-400); WHITE BLOOD COUNT 12.8 10^3/uL (4.3-11.0)
[2021-01-28 10:25] LABS: BAND NEUTROPHILS 8 %; BASOPHILS % (MANUAL) 0 %; EOSINOPHILS % (MANUAL) 0 %; LYMPHOCYTES % (MANUAL) 4 %; MONOCYTES % (MANUAL) 2 %; NEUTROPHILS % (MANUAL) 86 %; RBC MORPH NORMAL
[2021-01-28 10:28] LABS: ALBUMIN 3.8 GM/DL (3.2-4.5); CHLORIDE 99 MMOL/L (98-107); POTASSIUM 4.6 MMOL/L (3.6-5.0); SODIUM 134 MMOL/L (135-145)
[2021-01-28 10:30] LABS: CALCIUM 8.5 MG/DL (8.5-10.1)
[2021-01-28 10:31] LABS: GLUCOSE 116 MG/DL (70-105)
[2021-01-28 10:32] LABS: BILIRUBIN,TOTAL 0.7 MG/DL (0.1-1.0); CARBON DIOXIDE 23 MMOL/L (21-32)
[2021-01-28 10:34] LABS: ALKALINE PHOSPHATASE 60 U/L (40-136); CREATININE SERUM 1.06 MG/DL (0.60-1.30); GFR ESTIMATED > 60
[2021-01-28 10:35] LABS: BUN/CREATININE RATIO 14
[2021-01-28 10:37] LABS: ALANINE AMINOTRANSFERASE 18 U/L (0-55)
--- NOTE | 2021-01-28 11:12 | Diagnostic Imaging Report ---
INDICATION: Covid positive. Cough with flu symptoms. Comparison with 08/03/2019. FINDINGS: There are scattered bilateral alveolar infiltrates predominantly in the perihilar region bilaterally. The lungs are well-aerated. No pneumothorax or pleural effusion. The heart is not enlarged. IMPRESSION: Bilateral patchy pneumonia consistent with Covid positive diagnosis. Dictated by: Dictated on workstation # [id number]
[2021-01-28] MEDS ORDERED: AZIT250T12 PO (12:26)
[2021-01-28 12:43] VITALS: BP 99/66
== END 2021-01-28 12:43 | disposition home or self-care (01) ==
LOC: EDUNIT# 09:24 → ER 09:26
DX: U07.1 COVID-19 (principal); J12.82 Pneumonia due to coronavirus disease 2019; Z87.891 Personal history of nicotine dependence
CPT/HCPCS: 36415; 71045; 80053; 83605; 84145; 85007; 85027; 85610; 85730; 87040; 87636

== ENCOUNTER 2021-01-30 08:33 | Inpatient (IN) | payer OTHER ==
[~2021-01-30] VITALS: Ht 167.6 cm; Wt 47.8 kg
[~2021-01-30 08:33] MED LIST changes: +AZIT250T12 PO; -HOLD METFORMIN - RECEIVED CONTRAST 20 ML VIAL IV SCH; -IOHEXOL 350 MG/ML 100 ML (OMNIPAQUE 350) VIAL IV ONE; -NS 100 ML (IVPB) BAG IV ONE
[2021-01-30 09:04] LABS: BASOPHILS % (AUTO) 0 % (0-10); EOSINOPHILS % (AUTO) 0 % (0-10); HEMATOCRIT 44 % (40-54); HEMOGLOBIN 14.3 g/dL (13.3-17.7); LYMPHOCYTES # (AUTO) 0.5 10^3/uL (1.0-4.0); LYMPHOCYTES % (AUTO) 6 % (12-44); MEAN CORPUSCULAR HEMOGLOBIN 30 pg (25-34); MEAN CORPUSCULAR HGB CONC 33 g/dL (32-36); MEAN CORPUSCULAR VOLUME 90 fL (80-99); MEAN PLATELET VOLUME 10.1 fL (9.0-12.2); MONOCYTES # (AUTO) 0.2 10^3/uL (0.0-1.0); MONOCYTES % (AUTO) 3 % (0-12); NEUTROPHILS # (AUTO) 7.7 10^3/uL (1.8-7.8); NEUTROPHILS % (AUTO) 91 % (42-75); PLATELET COUNT 206 10^3/uL (130-400); WHITE BLOOD COUNT 8.5 10^3/uL (4.3-11.0)
--- NOTE | 2021-01-30 09:13 | Diagnostic Imaging Report ---
INDICATION: Sepsis FINDINGS: Portable upright view of the chest is compared to an exam from 2 days ago. Bilateral nodular infiltrates have increased. Heart size and vascularity are normal. There are no pleural effusions. IMPRESSION: The bilateral nodular pulmonary infiltrates have increased in size. Dictated by: Dictated on workstation # [id number]
[2021-01-30] MEDS ORDERED: ACETAMINOPHEN 500 MG TAB (TYLENOL) PO ONE (09:15)
[2021-01-30 09:17] LABS: INR 0.9 (0.8-1.4); PROTHROMBIN TIME PATIENT 12.4 SEC (12.2-14.7)
--- NOTE | 2021-01-30 09:17 | ED Respiratory ---
General Chief Complaint: Respiratory Problems Stated Complaint: COVID Nursing Triage Note: ARRIVED VIA EMS FROM HOME WITH INCREASED SOA AND NOT FEELING WELL. HERE X2 DAYS AGO ET DX WITH COVID. SCHEDULED FOR THE INFUSION ON MONDAY. Source: patient, EMS Exam Limitations: no limitations History of Present Illness Date Seen by Provider: Jan 30, 2021 Time Seen by Provider: 08:00 Initial Comments Patient is a 40-year-old male who presents to the emergency room with a chief complaint of shortness of breath and not feeling well. Patient was diagnosed with Covid here in the emergency department 2 days ago and scheduled for Regeneron infusion on Monday. Patient oxygen saturations were 88% on EMS arrival. He is not on oxygen. Patient complains of diarrhea, generalized body aches feeling short of breath and productive cough. All other review of systems reviewed and negative except as stated. Timing/Duration: constant, getting worse Severity: moderate Prior Episodes/Possible Cause: illness exposure Associated Symptoms: chest pain/soreness, cough, fever/chills, headache, muscle aches, shortness of breath Allergies and Home Medications Allergies Coded Allergies: No Known Drug Allergies (Unverified , 01/30/21) Home Medications Acetaminophen 325 Mg Tablet, 650 MG PO Q6H PRN for PAIN-MILD (1-4), (Reported) Last Action: Reviewed Azithromycin 250 Mg Tablet, 250 MG PO UD, (Reported) TAKE 2 TABLETS ON DAY ONE THEN TAKE 1 TABLET DAILY FOR FOUR MORE DAYS Last Action: Reviewed Famotidine 10 Mg Tablet, 10 MG PO DAILY PRN for HEARTBURN, (Reported) Last Action: Reviewed Patient Home Medication List Home Medication List Reviewed: Yes Review of Systems Review of Systems Constitutional: see HPI EENTM: no symptoms reported, nose congestion, throat pain Respiratory: cough, dyspnea on exertion, short of breath Cardiovascular: chest pain Gastrointestinal: diarrhea, loss of appetite Genitourinary: no symptoms reported Musculoskeletal: muscle cramps Skin: no symptoms reported All Other Systems Reviewed Negative Unless Noted: Yes Past Qcvqcmq-Kxrnqd-Uxbxsu Hx Patient Social History Smoking Status: Former Smoker Substance use?: No Alcohol Use?: No Past Medical History Surgeries: No Respiratory: No Cardiac: No Neurological: No Genitourinary: No Gastrointestinal: No Musculoskeletal: No Endocrine: No HEENT: No Cancer: No Psychosocial: No Family Medical History No Pertinent Family Hx Physical Exam Vital Signs - First Documented 01/30/21 01/30/21 08:33 08:55 Temp 39.0 Pulse 103 Resp 16 B/P (MAP) 117/79 (92) Pulse Ox 97 O2 Delivery Non Rebreather O2 Flow Rate 2.00 Capillary Refill : Less Than 3 Seconds Height: '" Weight: lbs. oz. kg; 20.00 BMI Method: General Appearance: WD/WN, no apparent distress Neck: supple, normal inspection Respiratory: rhonchi (Coarse breath sounds bilaterally with scattered rhonchi noted) Cardiovascular: regular rate, rhythm Gastrointestinal: non tender, soft Extremities: non-tender, normal inspection, no pedal edema, no calf tenderness Neurologic/Psychiatric: alert, normal mood/affect, oriented x 3 Skin: normal color, warm/dry Focused Exam Lactate Level 01/30/21 08:45: Lactic Acid Level 1.62 Lactic Acid Level Laboratory Tests Test 01/30/21 08:45 Lactic Acid Level 1.62 MMOL/L (0.50-2.00) Progress/Results/Core Measures Suspected Sepsis SIRS Temperature: Pulse: 103 Respiratory Rate: 16 Laboratory Tests 01/30/21 08:45: White Blood Count 8.5 Blood Pressure 117 /79 Mean: 92 01/30/21 08:45: Lactic Acid Level 1.62 Laboratory Tests 01/30/21 08:45: Creatinine 0.87, INR Comment 0.9, Platelet Count 206, Total Bilirubin 0.5 Results/Orders Lab Results Laboratory Tests Test 01/30/21 08:45 Range/Units White Blood Count 8.5 4.3-11.0 10^3/uL Red Blood Count 4.82 4.30-5.52 10^6/uL Hemoglobin 14.3 13.3-17.7 g/dL Hematocrit 44 40-54 % Mean Corpuscular Volume 90 80-99 fL Mean Corpuscular Hemoglobin 30 25-34 pg Mean Corpuscular Hemoglobin Concent 33 32-36 g/dL Red Cell Distribution Width 13.0 10.0-14.5 % Platelet Count 206 130-400 10^3/uL Mean Platelet Volume 10.1 9.0-12.2 fL Immature Granulocyte % (Auto) 1 % Neutrophils (%) (Auto) 91 H 42-75 % Lymphocytes (%) (Auto) 6 L 12-44 % Monocytes (%) (Auto) 3 0-12 % Eosinophils (%) (Auto) 0 0-10 % Basophils (%) (Auto) 0 0-10 % Neutrophils # (Auto) 7.7 1.8-7.8 10^3/uL Lymphocytes # (Auto) 0.5 L 1.0-4.0 10^3/uL Monocytes # (Auto) 0.2 0.0-1.0 10^3/uL Eosinophils # (Auto) 0.0 0.0-0.3 10^3/uL Basophils # (Auto) 0.0 0.0-0.1 10^3/uL Immature Granulocyte # (Auto) 0.0 0.0-0.1 10^3/uL Neutrophils % (Manual) 79 % Lymphocytes % (Manual) 6 % Monocytes % (Manual) 4 % Eosinophils % (Manual) 0 % Basophils % (Manual) 0 % Band Neutrophils 11 % Blood Morphology Comment NORMAL Prothrombin Time 12.4 12.2-14.7 SEC INR Comment 0.9 0.8-1.4 Activated Partial Thromboplast Time 36 H 24-35 SEC Sodium Level 135 135-145 MMOL/L Potassium Level 5.1 H 3.6-5.0 MMOL/L Chloride Level 100 98-107 MMOL/L Carbon Dioxide Level 21 21-32 MMOL/L Anion Gap 14 5-14 MMOL/L Blood Urea Nitrogen 12 7-18 MG/DL Creatinine 0.87 0.60-1.30 MG/DL Estimat Glomerular Filtration Rate > 60 BUN/Creatinine Ratio 14 Glucose Level 87 70-105 MG/DL Lactic Acid Level 1.62 0.50-2.00 MMOL/L Calcium Level 7.7 L 8.5-10.1 MG/DL Corrected Calcium 8.4 L 8.5-10.1 MG/DL Total Bilirubin 0.5 0.1-1.0 MG/DL Aspartate Amino Transf (AST/SGOT) 45 H 5-34 U/L Alanine Aminotransferase (ALT/SGPT) 29 0-55 U/L Alkaline Phosphatase 48 40-136 U/L Total Protein 6.5 6.4-8.2 GM/DL Albumin 3.1 L 3.2-4.5 GM/DL Micro Results Microbiology 01/30/21 Blood Culture - Preliminary, Resulted No growth 01/30/21 Blood Culture - Preliminary, Resulted No growth My Orders Orders - BELIA DORMAN MD Cbc With Automated Diff (01/30/21 08:48) Comprehensive Metabolic Panel (01/30/21 08:48) Blood Culture (01/30/21 08:48) Sputum Culture (01/30/21 08:48) Urinalysis (01/30/21 08:48) Urine Culture (01/30/21 08:48) Protime With Inr (01/30/21 08:48) Partial Thromboplastin Time (01/30/21 08:48) Chest 1 View, Ap/Pa Only (01/30/21 08:48) Ed Iv/Invasive Line Start (01/30/21 08:48) Ed Iv/Invasive Line Start (01/30/21 08:48) Vital Signs Adult Sepsis Patie Q15M (01/30/21 08:48) O2 (01/30/21 08:48) Remove Rings In Anticipation O (01/30/21 08:48) Lactic Acid Analyzer (01/30/21 08:48) Acetaminophen Tablet (Tylenol Tablet) (01/30/21 09:15) Manual Differential (01/30/21 08:45) Dexamethasone Injection (Decadron Injec (01/30/21 09:15) Medications Given in ED Vital Signs/I&O 01/30/21 01/30/21 08:33 08:55 Temp 39.0 Pulse 103 Resp 16 B/P (MAP) 117/79 (92) Pulse Ox 97 95 O2 Delivery Non Rebreather Nasal Cannula O2 Flow Rate 2.00 Capillary Refill : Less Than 3 Seconds Blood Pressure Mean: 92 Diagnostic Imaging Diagonstic Imaging: Xray Plain Films/CT/US/NM/MRI: chest Comments NAME: NELLY PEREZ [facility] REC#: [id number] PT STATUS: REG ER : 1980 PHYSICIAN: BELIA DORMAN MD ADMIT DATE: 01/30/21/ER Draft Date of Exam:01/30/21 CHEST 1 VIEW, AP/PA ONLY INDICATION: Sepsis FINDINGS: Portable upright view of the chest is compared to an exam from 2 days ago. Bilateral nodular infiltrates have increased. Heart size and vascularity are normal. There are no pleural effusions. IMPRESSION: The bilateral nodular pulmonary infiltrates have increased in size. Dictated on workstation # [id number] Dict: 01/30/21910 Trans: 01/30/21912 [facility] [id number] Interpreted by: RIVER LEW MD Electronically signed by: Departure Impression Primary Impression: Pneumonia due to COVID-19 virus Additional Impression: Hypoxemia Disposition: ADMITTED INPATIENT Condition: Stable Admissions Decision to Admit Reason: Admit from ER (General) Decision to Admit/Date: Jan 30, 2021 Time/Decision to Admit Time: 09:50 Departure-Patient Inst. Referrals: NO,LOCAL PHYSICIAN (PCP/Family) Primary Care Physician BELIA DORMAN MD Jan 30, 2021 09:17
[2021-01-30 09:18] LABS: ALBUMIN 3.1 GM/DL (3.2-4.5); CHLORIDE 100 MMOL/L (98-107); POTASSIUM 5.1 MMOL/L (3.6-5.0); SODIUM 135 MMOL/L (135-145)
[2021-01-30 09:20] LABS: CALCIUM 7.7 MG/DL (8.5-10.1)
[2021-01-30 09:21] LABS: GLUCOSE 87 MG/DL (70-105); TOTAL PROTEIN 6.5 GM/DL (6.4-8.2)
[2021-01-30 09:22] LABS: BILIRUBIN,TOTAL 0.5 MG/DL (0.1-1.0); CARBON DIOXIDE 21 MMOL/L (21-32)
[2021-01-30 09:24] LABS: ALKALINE PHOSPHATASE 48 U/L (40-136); CREATININE SERUM 0.87 MG/DL (0.60-1.30); GFR ESTIMATED > 60
[2021-01-30 09:25] LABS: BUN/CREATININE RATIO 14
[2021-01-30 09:27] LABS: ALANINE AMINOTRANSFERASE 29 U/L (0-55)
[2021-01-30 09:39] LABS: BAND NEUTROPHILS 11 %; BASOPHILS % (MANUAL) 0 %; EOSINOPHILS % (MANUAL) 0 %; LYMPHOCYTES % (MANUAL) 6 %; MONOCYTES % (MANUAL) 4 %; NEUTROPHILS % (MANUAL) 79 %; RBC MORPH NORMAL
[2021-01-30 11:39] VITALS: BP 94/68
[2021-01-30] MEDS ORDERED: RT-ALBUTEROL INHALER HFA (VENTOLIN HFA) 18 GM IH PRN (11:45)
[2021-01-30] MEDS: NS IV 1000 ML 1,000 ML IV SCH ×2 (11:48→20:36)
[2021-01-30 12:07] VITALS: BP 88/56
--- NOTE | 2021-01-30 12:10 | History & Physical-Hospitalist ---
History of Present Illness HPI/Chief Complaint Pt is a 40yoCF with no significant past medical history of who presented to the ER due to SOB. He was diagnosed with COVID on 01/28 in the ER and was scheduled for Regeneron on Monday but started to feel worse prior to that and called EMS to bring him in for evaluation.He presented on non rebreather but was transitioned to HFNC at 4lpm. His symptoms started roughly 7 days ago. He is unvaccinated against COVID. He is being admitted for further management. Source: patient Date Seen 01/30/21 Time Seen by a Provider: 11:57 Attending Physician Carmela Guaman MD PCP No,Local Physician Referring Physician Date of Admission Jan 30, 2021 at 09:53 Home Medications & Allergies Home Medications Reviewed patient Home Medication Reconciliation performed by pharmacy medication reconciliations endoscopic technician and/or nursing. Patients Allergies have been reviewed. Allergies Allergies Coded Allergies No Known Drug Allergies (Unverified01/30/21) Past Arsmbjt-Mknldp-Knsyzr Hx Patient Social History Marrital Status: single Employed/Student: employed Smoking Status: Former Smoker Substance use?: No Alcohol Use?: No Current Status Advance Directives: No Preferred Spoken Language: Slovak Family Medical History Reviewed Nursing Family Hx No Pertinent Family Hx Review of Systems Constitutional: chills, fever, malaise Respiratory: cough, dyspnea on exertion, short of breath Cardiovascular: No chest pain Gastrointestinal: diarrhea, loss of appetite (loss of taste and smell), nausea Genitourinary: no symptoms reported Musculoskeletal: muscle pain Skin: no symptoms reported Psychiatric/Neurological: No Symptoms Reported Physical Exam Physical Exam Vital Signs Vital Signs - First Documented 01/30/21 01/30/21 01/30/21 08:33 08:55 11:39 Temp 39.0 Pulse 103 Resp 16 B/P (MAP) 117/79 (92) Pulse Ox 97 O2 Delivery Non Rebreather O2 Flow Rate 2.00 FiO2 36 Capillary Refill : Less Than 3 Seconds Height, Weight, BMI Height: '" Weight: lbs. oz. kg; 20.00 BMI Method: General Appearance: No Apparent Distress, WD/WN, Thin HEENT: PERRL/EOMI, Moist Mucous Membranes; No Scleral Icterus (L), No Scleral Icterus (R) Neck: Normal Inspection, Supple Respiratory: Decreased Breath Sounds, Other (3lpm) Cardiovascular: Regular Rate, Rhythm, No Murmur Gastrointestinal: Normal Bowel Sounds, Non Tender, Soft Extremity: Normal Capillary Refill, No Calf Tenderness, No Pedal Edema Neurologic/Psychiatric: Alert, Oriented x3, Normal Mood/Affect Skin: Normal Color, Warm/Dry Results Results/Procedures Labs Laboratory Tests 01/30/21 08:45 Patient resulted labs reviewed. Imaging: Reviewed Imaging Report Imaging [facility] [place] NAME: NELLY PEREZ [facility] REC#: [id number] PT STATUS: REG ER : 1980 PHYSICIAN: BELIA DORMAN MD ADMIT DATE: 01/30/21/ER Signed Date of Exam:01/30/21 CHEST 1 VIEW, AP/PA ONLY INDICATION: Sepsis FINDINGS: Portable upright view of the chest is compared to an exam from 2 days ago. Bilateral nodular infiltrates have increased. Heart size and vascularity are normal. There are no pleural effusions. IMPRESSION: The bilateral nodular pulmonary infiltrates have increased in size. Dictated by: Dictated on workstation # [id number] Dict: 01/30/21 0911 Trans: 01/30/21 0940 [facility] [id number] Interpreted by: RIVER LEW MD Electronically signed by: RIVER LEW MD 01/30/21 0940 Assessment/Plan Admission Diagnosis Acute hypoxic respiratory failure due to COVID19 Admission Status: Inpatient Order (span 2 midnights) Reason for Inpatient Admission: see below Assessment and Plan Acute hypoxic respiratory failure due to COVID19 Supplementation oxygen to keep sats >90 Remdesivir Convalescent plasma ordered Continue decadron Lovenox for DVT ppx TelePulm Diagnosis/Problems Diagnosis/Problems (1) Pneumonia due to COVID-19 virus Status: Acute (2) Acute respiratory failure Qualifiers: Respiratory failure complication: hypoxia Qualified Codes: J96.01 - Acute respiratory failure with hypoxia CARMELA GUAMAN MD Jan 30, 2021 12:10
[2021-01-30] MEDS ORDERED: MILK OF MAGNESIA 400 MG/5 ML 30 ML UDC PO PRN (12:45)
[2021-01-30] MEDS ORDERED: ONDANSETRON 4 MG/2 ML (SDV) Z0FRAN IV PRN (12:45)
[2021-01-30] MEDS ORDERED: BENZONATATE 100 MG (TESSALON) CAPSULE PO PRN (12:45)
[2021-01-30] MEDS ORDERED: MELATONIN 3 MG TABLET PO PRN (12:45)
[2021-01-30] MEDS ORDERED: ANTACID SUSP 30 ML UDC (MYLANTA) PO PRN (12:45)
[2021-01-30] MEDS ORDERED: NS IV 500 ML 500 ML IV SCH (13:00)
[2021-01-30] MEDS ORDERED: REMDESIVIR INJ 200 MG in NS (IVPB) 210 ML IV ONE (13:00)
[2021-01-30] MEDS: RT-ALBUTEROL INHALER HFA (VENTOLIN HFA) 18 GM IH SCH ×2 (15:00→18:28)
[2021-01-30 15:46] VITALS: BP 92/62
[2021-01-30 19:36] VITALS: BP 100/60
[2021-01-30] MEDS: ACETAMINOPHEN 325 MG TABLET PO PRN (20:35)
[2021-01-31] VITALS (32 sets, daily range): BP systolic 27–161; BP diastolic 58–109
[2021-01-31] MEDS ORDERED: HYDROcodone/APAP 5 MG/325 MG (LORTAB) TAB PO PRN (00:30)
[2021-01-31 00:52] LABS: ABG BASE EXCESS -4.8 MMOL/L (-2.5-2.5); ABG OXYGEN SATURATION 95 % (94-100); ABG PCO2 27 MMHG (35-45); ABG PH 7.45 (7.37-7.43); ABG PO2 74 MMHG (79-93); ABG TCO2 19.2 MMOL/L (21.0-31.0)
[2021-01-31 00:53] LABS: ALLENS TEST YES-POS
[2021-01-31 00:54] LABS: INSPIRED O2 70; PATIENT TEMP 37.8; VENTILATOR NO
[2021-01-31] MEDS: RT-ALBUTEROL INHALER HFA (VENTOLIN HFA) 18 GM IH SCH ×5 (02:38→22:16)
--- NOTE | 2021-01-31 04:24 | Tele-ICU Progress Note ---
Progress Note 40M admitted earlier today with progressive COVID symptoms. At 10 am noted to be desaturating to 85% with ambulation on 3L NC. Now transferred to ICU for increasing O2 demand with SpO2 90% with vapotherm at max settings. BiPap initiated on arrival to ICU with improvement to mid-90s. Oriented but lethargic. Already started on remdesevir. Supportive care ongoing. Monitor for progressive respiratory decline, remains at very high risk of intubation in the next couple days. Focused Exam Lactate Level 01/30/21 08:45: Lactic Acid Level 1.62 Height, Weight, BMI Height: '" Weight: lbs. oz. kg; 17.01 BMI Method: DREA GIBBONS MD Jan 31, 2021 04:24
[2021-01-31 04:29] LABS: BASOPHILS % (AUTO) 0 % (0-10); EOSINOPHILS % (AUTO) 0 % (0-10); HEMATOCRIT 39 % (40-54); LYMPHOCYTES # (AUTO) 0.3 10^3/uL (1.0-4.0); LYMPHOCYTES % (AUTO) 10 % (12-44); MEAN CORPUSCULAR HEMOGLOBIN 30 pg (25-34); MEAN CORPUSCULAR HGB CONC 33 g/dL (32-36); MEAN CORPUSCULAR VOLUME 90 fL (80-99); MEAN PLATELET VOLUME 10.3 fL (9.0-12.2); MONOCYTES # (AUTO) 0.1 10^3/uL (0.0-1.0); MONOCYTES % (AUTO) 4 % (0-12); NEUTROPHILS # (AUTO) 2.8 10^3/uL (1.8-7.8); NEUTROPHILS % (AUTO) 85 % (42-75); PLATELET COUNT 205 10^3/uL (130-400); WHITE BLOOD COUNT 3.3 10^3/uL (4.3-11.0)
[2021-01-31 04:36] LABS: ALBUMIN 2.8 GM/DL (3.2-4.5); CHLORIDE 103 MMOL/L (98-107); POTASSIUM 4.5 MMOL/L (3.6-5.0); SODIUM 134 MMOL/L (135-145)
[2021-01-31 04:37] LABS: CALCIUM 7.6 MG/DL (8.5-10.1)
[2021-01-31 04:39] LABS: GLUCOSE 100 MG/DL (70-105); TOTAL PROTEIN 5.3 GM/DL (6.4-8.2)
[2021-01-31 04:40] LABS: BILIRUBIN,TOTAL 0.4 MG/DL (0.1-1.0); CARBON DIOXIDE 20 MMOL/L (21-32)
[2021-01-31 04:42] LABS: ALKALINE PHOSPHATASE 37 U/L (40-136); CREATININE SERUM 0.74 MG/DL (0.60-1.30); GFR ESTIMATED > 60; PHOSPHORUS 2.4 MG/DL (2.3-4.7)
[2021-01-31 04:43] LABS: BUN/CREATININE RATIO 20
[2021-01-31 04:45] LABS: ALANINE AMINOTRANSFERASE 28 U/L (0-55); MAGNESIUM 1.5 MG/DL (1.6-2.4)
[2021-01-31] MEDS: MAGNESIUM 1 GM/100 ML IVPB 100 ML IV SCH ×3 (05:28→09:24)
[2021-01-31] MEDS: KCL 20 MEQ TAB (K-DUR) PO SCH (05:28)
[2021-01-31] MEDS: POTASSIUM CL 10MEQ/50ML IVPB 50 ML IV SCH (05:28)
[2021-01-31] MEDS: NS IV 1000 ML 1,000 ML IV SCH ×3 (06:32→20:07)
[2021-01-31] MEDS ORDERED: AZIT250T12 PO (10:08)
[2021-01-31] MEDS ORDERED: ACET325T38 PO (10:09)
[2021-01-31] MEDS ORDERED: FAMO10TA43 PO (10:09)
[2021-01-31 10:17] LABS: ABG BASE EXCESS -5.8 MMOL/L (-2.5-2.5); ABG OXYGEN SATURATION 94 % (94-100); ABG PCO2 28 MMHG (35-45); ABG PH 7.42 (7.37-7.43); ABG PO2 69 MMHG (79-93); ABG TCO2 18.8 MMOL/L (21.0-31.0)
[2021-01-31 10:22] LABS: ALLENS TEST YES-POS; INSPIRED O2 90%; PATIENT TEMP 97.8; VENTILATOR NO
[2021-01-31] MEDS ORDERED: proPOfol 200 MG/20 ML (DIPRIVAN) VIAL IV ONE (10:33)
[2021-01-31] MEDS ORDERED: PROPOFOL DRIP (ICU) 100 ML IV ONE (10:33)
--- NOTE | 2021-01-31 10:38 | Progress Note - Hospitalist ---
Subjective HPI/CC On Admission Date Seen by Provider: Jan 31, 2021 Time Seen by Provider: 10:32 Pt is a 40yoCF with no significant past medical history of who presented to the ER due to SOB. He was diagnosed with COVID on 01/28 in the ER and was scheduled for Regeneron on Monday but started to feel worse prior to that and called EMS to bring him in for evaluation.He presented on non rebreather but was transitioned to HFNC at 4lpm. His symptoms started roughly 7 days ago. He is unvaccinated against COVID. He is being admitted for further management. Subjective/Events-last exam Pt transferred up to ICU last night due to max vapotherm requirement. This morning he is quite drowsy. Opens eyes with verbal and physical stimuli. We discussed risk of intubation and he nods his head in agreement if needed. Otherwise quickly closes his eyes again and goes back to sleep. Focused Exam Lactate Level 01/30/21 08:45: Lactic Acid Level 1.62 Objective Exam Vital Signs Vital Signs Date Time Temp Pulse Resp B/P (MAP) Pulse Ox O2 Delivery O2 Flow Rate FiO2 01/31/21 10:10 101 35 96 90.00 01/31/21 10:00 99/66 (77) NIV Bilevel 01/31/21 08:00 90 01/31/21 08:00 35.3 Capillary Refill : Less Than 3 Seconds General Appearance: Thin, Other (clinically ill appearing) Respiratory: Decreased Breath Sounds, Rhonci, Other (on BiPAP) Cardiovascular: Regular Rate, Rhythm, No Murmur Gastrointestinal: Normal Bowel Sounds, Non Tender, Soft Extremity: No Calf Tenderness, No Pedal Edema Neurologic/Psychiatric: Alert (with physicial/verbal stimuli otherwise quite drowsy) Results/Procedures Lab Laboratory Tests 01/31/21 03:40 Patient resulted labs reviewed. Imaging: Reviewed Imaging Report Assessment/Plan Assessment and Plan Assess & Plan/Chief Complaint Acute hypoxic respiratory failure due to COVID19 Worsened overnight, transferred to the ICU Quite drowsy, discussed mental status with Dr Power with eICU who recommended intubation Anesthesia contacted for intubation Vent settings per eICU DC Remdesivir given high oxygen requirement Convalescent plasma ordered, awaiting arrival Continue decadron Lovenox for DVT ppx Diagnosis/Problems Diagnosis/Problems (1) Pneumonia due to COVID-19 virus Status: Acute (2) Acute respiratory failure Qualifiers: Respiratory failure complication: hypoxia Qualified Codes: J96.01 - Acute respiratory failure with hypoxia CARMELA WHITE MD Jan 31, 2021 10:38
--- NOTE | 2021-01-31 11:10 | Tele-ICU Progress Note ---
Subjective Date Seen by a Provider: Jan 31, 2021 Time Seen by a Provider: 11:05 Subjective/Events-last exam Patient was admitted yesterday with a Covid pneumonia and hypoxic respiratory failure and he is transferred to ICU because of increased oxygen demands and work of breathing. He has been tried on a BiPAP ventilation however today he has been markedly tachypneic and work working hard to breathe. I have discussed with the attending physician Dr. Merida this a.m. And I advised her to intubate this patient. Subsequently anesthesia was called and intubated patient I have supervised the intubation via video visit and discussed with the RT. Also discussed with the RN earlier. I have written vent settings, DVT prophylaxis and ulcer prophylaxis and the labs necessary. Sepsis Event Evaluation Height, Weight, BMI Height: '" Weight: lbs. oz. kg; 17.01 BMI Method: Focused Exam Lactate Level 01/30/21 08:45: Lactic Acid Level 1.62 Exam Exam Patient acknowledged, consented, and participated in this virtual visit which was conducted using real time audio/video Vital Signs Date Time Temp Pulse Resp B/P (MAP) Pulse Ox O2 Delivery O2 Flow Rate FiO2 01/31/21 10:10 101 35 96 90.00 01/31/21 10:00 100 99/66 (77) 95 NIV Bilevel 90.00 01/31/21 09:00 102 100/68 (79) 94 NIV Bilevel 90.00 01/31/21 08:00 NIV Bilevel 90 01/31/21 08:00 97 34 98/67 (77) 94 NIV Bilevel 90.00 01/31/21 08:00 35.3 01/31/21 07:00 93 01/31/21 07:00 96 29 94/66 (75) 94 NIV Bilevel 90.00 01/31/21 06:00 99 36 91/65 (74) 91 NIV Bilevel 90.00 01/31/21 05:00 100 93/63 (73) 95 NIV Bilevel 90.00 01/31/21 04:00 99 38 92/65 (74) 95 NIV Bilevel 90.00 01/31/21 04:00 37.1 01/31/21 03:00 96 35 91/63 (72) 92 NIV Bilevel 90.00 01/31/21 02:38 102 35 91 90.00 01/31/21 02:25 NIV Bilevel 90.00 01/31/21 02:00 95 34 99/66 (77) 96 NIV Bilevel 100.00 01/31/21 01:00 NIV Bilevel 100 01/31/21 01:00 102 38 99/68 (78) 96 NIV Bilevel 100.00 01/31/21 00:41 99 01/31/21 00:40 102 39 96 100.00 01/31/21 00:35 37.4 104 45 106/74 (85) 92 NIV Bilevel 100.00 01/31/21 00:05 37.5 99 18 96/60 (72) 93 Vapotherm 30.00 70.00 01/30/21 22:09 92 Vapotherm 40.00 100 01/30/21 21:19 38.2 01/30/21 20:36 92 Vapotherm 40.00 100 01/30/21 20:35 38.0 01/30/21 19:36 38.0 105 18 100/60 (73) 90 Vapotherm 30.00 70.00 01/30/21 18:53 96 Vapotherm 30.00 70 01/30/21 15:46 36.2 80 20 92/62 (72) 90 Nasal Cannula 2.50 01/30/21 12:07 92 18 88/56 (67) 91 Nasal Cannula 2.50 01/30/21 11:55 91 Nasal Cannula 2.50 01/30/21 11:44 92 Nasal Cannula 4.00 01/30/21 11:39 37.1 89 92 36 I & O 01/31/21 07:00 Intake Total 670 ml Output Total 300 ml Balance 370 ml Height & Weight Height: '" Weight: lbs. oz. kg; 17.01 BMI Method: General Appearance: Thin, Other (clinically ill appearing) HEENT: PERRL/EOMI, Moist Mucous Membranes; No Scleral Icterus (L), No Scleral Icterus (R) Neck: Normal Inspection, Supple Respiratory: Decreased Breath Sounds, Rhonci, Other (on BiPAP) Cardiovascular: Regular Rate, Rhythm, No Murmur Capillary Refill: Less Than 3 Seconds Gastrointestinal: non tender, soft Extremity: No Calf Tenderness, No Pedal Edema Neurologic/Psychiatric: Alert (with physicial/verbal stimuli otherwise quite drowsy) Skin: Normal Color, Warm/Dry Results Lab Laboratory Tests 7/17/21 08:45 01/31/21 03:40 Meds reviewed Radiology cxr reviewed Assessment/Plan Assessment/Plan 1. Acute Covid pneumonia 2. Acute hypoxic respiratory failure requiring intubation and mechanical ventilation. Recommendations 1. Continue mechanical ventilation with a tidal volume of 400, respiratory rate 16, FiO2 100% and a PEEP of 10. We will repeat a blood gas and adjust vent settings as necessary. 3. Ulcer prophylaxis with IV Protonix 4. Start DVT prophylaxis with the Lovenox subcutaneously 5. Continue remdesivir and increase her Decadron to 6 mg IV every 12 hours. 6. Discussed today earlier with her attending physician Dr. Guaman. 7. Sedation with propofol and fentanyl drip Critical Care: Ventilator Management Time spent with patient (mins): 45 Diagnosis/Problems Diagnosis/Problems (1) Acute respiratory failure Qualifiers: Qualified Codes: J96.01 - Acute respiratory failure with hypoxia (2) Pneumonia due to COVID-19 virus Status: Acute YANIRA LARKIN MD Jan 31, 2021 11:10
[2021-01-31] MEDS: PROPOFOL DRIP (ICU) 100 ML IV SCH ×2 (11:20→18:26)
[2021-01-31] MEDS: PANTOPRAZOLE 40 MG (PROTONIX) VIAL IV SCH (11:21)
[2021-01-31] MEDS: fentaNYL DRIP PRE-MIX 250 ML IV SCH ×2 (11:21→21:46)
[2021-01-31] MEDS ORDERED: ENOXAPARIN 30 MG/0.3 ML (LOVENOX) SYR SC SCH (11:30)
--- NOTE | 2021-01-31 11:33 | Anesthesia-Procedure Note ---
Procedures/Interventions Procedure Start/Stop/Diagnosis Date of Procedure: Jan 31, 2021 Start Time: 10:39 Stop Time: 10:50 Intubation 100% pre-Ox, [id number]: Yes Intubation Method: orotracheal Videoscope used: Yes Grade View: 1 Medications: Propofol, Rocuronium Mask Ventilation: positive Positive End Tide CO2: Yes Breath Sounds after Intubation: bilateral-equal ETT Securred @ (cm): 23 Intubated with ease: Yes Intubation Complications: no complications Care turned over to: ICU staff JEREMY BEARD CRNA Jan 31, 2021 11:33
--- NOTE | 2021-01-31 11:36 | Diagnostic Imaging Report ---
EXAMINATION: Chest 1 view HISTORY: Intubation. Covid positive. COMPARISON: 01/30/2021. FINDINGS: There has been interval placement of an endotracheal tube and enteric tube. The endotracheal tube is seen overlying the trachea approximately 7 cm above the pawel. The enteric tube tip is seen overlying the distal esophagus. Stable groundglass opacities are seen throughout the mid and lower lungs bilaterally. No large pleural effusion or pneumothorax. Stable cardiac silhouette. IMPRESSION: 1. Interval intubation and placement of an enteric tube. 2. Groundglass opacities in the mid and lower lungs bilaterally. Dictated by: Dictated on workstation # [id number]
[2021-01-31] MEDS ORDERED: REMDESIVIR INJ 100 MG in NS (IVPB) 230 ML IV SCH (13:00)
[2021-01-31 13:29] LABS: ABG BASE EXCESS -9.3 MMOL/L (-2.5-2.5); ABG OXYGEN SATURATION 99 % (94-100); ABG PCO2 36 MMHG (35-45); ABG PO2 218 MMHG (79-93); ABG TCO2 17.6 MMOL/L (21.0-31.0)
[2021-01-31 13:50] LABS: ABG PH 7.27 (7.37-7.43)
[2021-01-31 13:51] LABS: ALLENS TEST YES-POS; INSPIRED O2 100%; PATIENT TEMP 96.3; VENTILATOR YES
[2021-01-31] MEDS ORDERED: NS IV 500 ML 500 ML IV SCH (15:15)
--- NOTE | 2021-01-31 16:27 | Diagnostic Imaging Report ---
EXAMINATION: Chest 1 view. HISTORY: Endotracheal tube adjustment. COMPARISON: Chest radiograph performed earlier the same date. FINDINGS: Endotracheal tube is seen overlying the trachea approximately 6 cm above the pawel. The enteric tube is seen with the tip overlying the distal esophagus. Patchy opacities are seen in the mid and lower lungs, bilaterally, increased compared to the prior exam. No evidence of pleural effusion or pneumothorax. Stable cardiac silhouette. IMPRESSION: 1. Endotracheal tube has been advanced approximately 1 cm. Stable configuration of the enteric tube. 2. Increasing patchy opacities in the bilateral mid and lower lungs. Dictated by: Dictated on workstation # [id number]
[2021-01-31] MEDS ORDERED: ROCURONIUM 10 MG/ML 5 ML SYRINGE IV ONE (16:53)
[2021-01-31 17:13] LABS: ABG BASE EXCESS -6.8 MMOL/L (-2.5-2.5); ABG OXYGEN SATURATION 80 % (94-100); ABG PCO2 40 MMHG (35-45); ABG PO2 49 MMHG (79-93); ABG TCO2 19.9 MMOL/L (21.0-31.0)
[2021-01-31 17:16] LABS: ABG PH 7.29 (7.37-7.43); ALLENS TEST YES-POS
[2021-01-31 17:17] LABS: PATIENT TEMP 36.6; VENTILATOR YES
[2021-01-31] MEDS ORDERED: SODIUM BICARB 8.4% 50 MEQ/50 ML VIAL IV ONE (17:45)
[2021-01-31] MEDS ORDERED: SODIUM BICARB 8.4% 50 MEQ/50 ML (ABBOTT) SYR ONE (18:12)
--- NOTE | 2021-01-31 19:37 | Tele-ICU Progress Note ---
Progress Note Pt with COVID PNA with .6. Rectal Tylenol x 1 ordered . No NGT, Interventions Minor-Other: Fever Focused Exam Lactate Level 01/30/21 08:45: Lactic Acid Level 1.62 Height, Weight, BMI Height: '" Weight: lbs. oz. kg; 17.01 BMI Method: JUAN LEVIN MD Jan 31, 2021 19:37
[2021-01-31] MEDS ORDERED: ACETAMINOPHEN 650 MG SUPP (TYLENOL) PR ONE (19:45)
[2021-01-31] MEDS: ACETAMINOPHEN 325 MG TABLET PO PRN (20:06)
[2021-02-01] VITALS (36 sets, daily range): BP systolic 81–123; BP diastolic 39–70
[2021-02-01] MEDS: PROPOFOL DRIP (ICU) 100 ML IV SCH ×3 (02:11→19:55)
[2021-02-01] MEDS: NS IV 1000 ML 1,000 ML IV SCH (02:11)
[2021-02-01] MEDS: RT-ALBUTEROL INHALER HFA (VENTOLIN HFA) 18 GM IH SCH ×6 (02:50→22:17)
[2021-02-01 03:30] LABS: BASOPHILS % (AUTO) 1 % (0-10); EOSINOPHILS % (AUTO) 0 % (0-10); HEMATOCRIT 42 % (40-54); HEMOGLOBIN 13.6 g/dL (13.3-17.7); LYMPHOCYTES # (AUTO) 0.2 10^3/uL (1.0-4.0); LYMPHOCYTES % (AUTO) 12 % (12-44); MEAN CORPUSCULAR HEMOGLOBIN 29 pg (25-34); MEAN CORPUSCULAR HGB CONC 32 g/dL (32-36); MEAN CORPUSCULAR VOLUME 91 fL (80-99); MEAN PLATELET VOLUME 9.9 fL (9.0-12.2); MONOCYTES # (AUTO) 0.1 10^3/uL (0.0-1.0); MONOCYTES % (AUTO) 3 % (0-12); NEUTROPHILS # (AUTO) 1.3 10^3/uL (1.8-7.8); NEUTROPHILS % (AUTO) 84 % (42-75); PLATELET COUNT 251 10^3/uL (130-400); WHITE BLOOD COUNT 1.5 10^3/uL (4.3-11.0)
[2021-02-01 03:47] LABS: ALBUMIN 2.3 GM/DL (3.2-4.5); CHLORIDE 110 MMOL/L (98-107); POTASSIUM 5.2 MMOL/L (3.6-5.0); SODIUM 140 MMOL/L (135-145)
[2021-02-01 03:49] LABS: GLUCOSE 83 MG/DL (70-105); TOTAL PROTEIN 4.8 GM/DL (6.4-8.2)
[2021-02-01 03:50] LABS: CARBON DIOXIDE 21 MMOL/L (21-32)
[2021-02-01 03:51] LABS: BILIRUBIN,TOTAL 0.8 MG/DL (0.1-1.0)
[2021-02-01 03:52] LABS: ALKALINE PHOSPHATASE 37 U/L (40-136); PHOSPHORUS 3.3 MG/DL (2.3-4.7)
[2021-02-01 03:53] LABS: CREATININE SERUM 0.77 MG/DL (0.60-1.30); GFR ESTIMATED > 60
[2021-02-01 03:54] LABS: BUN/CREATININE RATIO 19
[2021-02-01 03:55] LABS: MAGNESIUM 2.4 MG/DL (1.6-2.4)
[2021-02-01 03:56] LABS: ALANINE AMINOTRANSFERASE 25 U/L (0-55)
[2021-02-01 04:22] LABS: ABG BASE EXCESS -4.7 MMOL/L (-2.5-2.5); ABG OXYGEN SATURATION 77 % (94-100); ABG PCO2 54 MMHG (35-45); ABG PO2 47 MMHG (79-93); ABG TCO2 23.6 MMOL/L (21.0-31.0)
[2021-02-01 04:23] LABS: INSPIRED O2 90%; PATIENT TEMP 37; VENTILATOR YES
[2021-02-01 04:24] LABS: ABG PH 7.23 (7.37-7.43)
[2021-02-01] MEDS ORDERED: LORazepam INJ 2 MG/ML (ATIVAN) VIAL IVP PRN (04:45)
[2021-02-01] MEDS: KCL 20 MEQ TAB (K-DUR) PO SCH (05:16)
[2021-02-01] MEDS: POTASSIUM CL 10MEQ/50ML IVPB 50 ML IV SCH (05:16)
[2021-02-01] MEDS: MAGNESIUM 1 GM/100 ML IVPB 100 ML IV SCH (05:16)
[2021-02-01] MEDS ORDERED: CEFEPIME INJECTION 1,000 MG in WATER (STERILE) FOR INJECTION 10 ML IV ONE (07:30)
[2021-02-01] MEDS: PANTOPRAZOLE 40 MG (PROTONIX) VIAL IV SCH (08:46)
[2021-02-01] MEDS ORDERED: LACTATED RINGERS 1,000 ML IV ONE (09:30)
[2021-02-01] MEDS: fentaNYL DRIP PRE-MIX 250 ML IV SCH ×2 (09:39→22:01)
[2021-02-01] MEDS: LACTATED RINGERS 1,000 ML IV SCH ×2 (09:42→16:12)
--- NOTE | 2021-02-01 10:03 | Diagnostic Imaging Report ---
Indication: COVID patient, followup. Compared: 01/21/2021 Findings: There are bilateral infiltrates present. The disease in the right mid to lower lung is increased. There is obscuration of the left diaphragm. There are small bilateral pleural effusions. ET tube mid trachea. OG catheter tip is at the EG junction. Impression: Worsened bilateral 5 lobe airspace disease, similar pleural effusions. OG catheter tip at the EG junction unchanged. Dictated by: Dictated on workstation # [id number]
[2021-02-01] MEDS ORDERED: ENOXAPARIN 40 MG/0.4 ML (LOVENOX) SYR SC SCH (11:00)
[2021-02-01] MEDS: CEFEPIME INJECTION 1,000 MG in WATER (STERILE) FOR INJECTION 10 ML IV SCH ×3 (12:07→23:25)
--- NOTE | 2021-02-01 12:26 | Tele-ICU Progress Note ---
Subjective Date Seen by a Provider: Feb 01, 2021 Time Seen by a Provider: 12:25 Sepsis Event Evaluation Height, Weight, BMI Height: '" Weight: lbs. oz. kg; 17.01 BMI Method: Focused Exam Lactate Level 01/30/21 08:45: Lactic Acid Level 1.62 Exam Exam Patient acknowledged, consented, and participated in this virtual visit which was conducted using real time audio/video Vital Signs Date Time Temp Pulse Resp B/P (MAP) Pulse Ox O2 Delivery O2 Flow Rate FiO2 02/01/21 12:05 123 105/60 02/01/21 11:42 Mechanical Ventilator 65 02/01/21 10:38 123 26 89 65 02/01/21 10:00 128 27 104/70 (81) 90 Mechanical Ventilator 02/01/21 09:00 128 25 108/67 (81) 90 Mechanical Ventilator 02/01/21 08:09 37.2 02/01/21 08:00 126 27 99/63 (75) 92 Mechanical Ventilator 02/01/21 08:00 Mechanical Ventilator 65 02/01/21 07:00 121 26 99/62 (74) 93 Mechanical Ventilator 02/01/21 07:00 121 02/01/21 06:35 122 26 97 65 02/01/21 06:00 113 25 103/70 (81) 99 Mechanical Ventilator 65.00 02/01/21 05:00 104 28 96/61 (73) 95 Mechanical Ventilator 65.00 02/01/21 04:00 Mechanical Ventilator 65 02/01/21 04:00 105 24 98/60 (73) 96 Mechanical Ventilator 65.00 02/01/21 04:00 36.1 65.00 02/01/21 03:00 103 25 96/59 (71) 95 Mechanical Ventilator 65.00 02/01/21 02:51 102 24 98 65 02/01/21 02:11 98 96/61 02/01/21 02:00 36.9 100 24 96/59 (71) 98 Mechanical Ventilator 65.00 02/01/21 01:00 96 02/01/21 01:00 96 22 90/58 (69) 95 Mechanical Ventilator 80.00 02/01/21 00:07 36.9 96 24 91/63 (72) 98 Mechanical Ventilator 80.00 01/31/21 23:59 Mechanical Ventilator 80 01/31/21 23:00 101 20 95/61 (72) 95 Mechanical Ventilator 80.00 01/31/21 22:16 102 23 95 80 01/31/21 22:00 107 25 102/62 (75) 95 Mechanical Ventilator 80.00 01/31/21 21:00 110 27 96/60 (72) 93 Mechanical Ventilator 80.00 01/31/21 20:36 36.1 01/31/21 20:06 38.1 01/31/21 20:00 Mechanical Ventilator 80 01/31/21 20:00 36.0 96/67 (77) 99 80.00 01/31/21 19:12 38.1 01/31/21 19:00 115 30 99/66 (77) 94 Mechanical Ventilator 80.00 01/31/21 19:00 115 01/31/21 18:26 100/66 01/31/21 18:18 111 30 94 80 01/31/21 18:00 112 23 93/87 (89) 94 Mechanical Ventilator 80.00 01/31/21 17:00 110 27 98/75 (83) 96 Mechanical Ventilator 80.00 01/31/21 16:04 36.6 01/31/21 16:00 Mechanical Ventilator 80.00 01/31/21 16:00 105 25 96/67 (77) 99 01/31/21 16:00 80 01/31/21 16:00 Mechanical Ventilator 80 01/31/21 15:00 101 23 92/66 (75) 88 Mechanical Ventilator 100.00 01/31/21 14:00 105 19 88/61 (70) 88 Mechanical Ventilator 100.00 01/31/21 13:15 130 14 98 100 01/31/21 13:00 116 23 89/58 (68) 92 Mechanical Ventilator 100.00 01/31/21 12:46 128 I & O 02/01/21 06:59 Intake Total 3170 ml Output Total 1900 ml Balance 1270 ml Height & Weight Height: '" Weight: lbs. oz. kg; 17.01 BMI Method: General Appearance: Thin, Other (clinically ill appearing) HEENT: PERRL/EOMI, Moist Mucous Membranes; No Scleral Icterus (L), No Scleral Icterus (R) Neck: Normal Inspection, Supple Respiratory: Decreased Breath Sounds, Rhonci, Other (on BiPAP) Cardiovascular: Regular Rate, Rhythm, No Murmur Capillary Refill: Less Than 3 Seconds Gastrointestinal: non tender, soft Extremity: No Calf Tenderness, No Pedal Edema Neurologic/Psychiatric: Alert (with physicial/verbal stimuli otherwise quite drowsy) Skin: Normal Color, Warm/Dry Results Lab Laboratory Tests 01/31/21 03:40 02/01/21 02:55 Assessment/Plan Assessment/Plan (Tele-ICU Physician , Progress Note ) Available chart/ vitals / labs / Images reviewed Video assessment done using teleICU camera, rest of exam as per RN Discussed with RN Events overnight : afebrile hemodynamically stable, no pressors, I/O = pos 900 Drips: ns- to LR VENT SETTINGS. ac 14 tv440 -- 65% peep 10 PAP 22 ABG reviewed Sedation: RASS - -3, prop 37 , fentanyl 20 Not candidate for SBTContraindications : Cardiovascular Stability / Sedation Score / FI02/PEEP / ABG / CXR As per RN exam : discussed Consultants: Hospital course: 01/31) 40/M- COVID Pna. bipap 100%. Incr. cxr infiltrates from ER visit and (+) covid in ER 7-. Not vaccinated. (01/31) Intubated- ac 14 tv440 -- 65% peep 10 PAP 22 02/01 - changes to ac 16 tv440 -- 65% peep 12 A/P Acute resp failure - intubated 01/31 - ac 14 tv440 -- 65% peep 10 PAP 22 - increase RR to 16 and peep to 12 - not prone - some improvement on Fio2 - will monitor nonproned now keep even balance - given IVF now for low bp - monitor Covid PNA - steroids IV bact PNA - sputum with strep pneum 01/31 - on abx Hyperkalemia - follow UO and K PNA - high elev PCT - abx initialed - CX -leukopenia - follow possible ETOH use , ? drug use - follow - agree with tox screen - ? hepatitis and HIV check - as per PCP today : - advance NG - repeat K - increae rr and peep - adjust lovenox to weight - start TF tomorrow Lines : perriph , (Central Line Necessity Reviewed) [place]: + OG: + Nutrition: off - start TF by tomorrow Analgesia: Anxiety/ delirium VTE Prophylaxis: lovenox , adjusted to weight 47 kg Stress Ulcer Prophylaxis: ppi Glycemic Control: Plans in collaboration with bedside consultants and IM MDs. Discussed with RN to reach out if any questions or concerns A total of 37 minutes of critical care time was devoted to this patient today, required to treat and/or prevent further deterioration of critical care condition ( as above DEYANIRA TROY MD Feb 01, 2021 12:26
--- NOTE | 2021-02-01 12:49 | Diagnostic Imaging Report ---
Indication: Respiratory failure Frontal chest obtained at 1241 p.m. is compared to 0315 a.m. the same day. ET tube is seen with tip overlying upper trachea. OG tube has been advanced compared to the prior study, tip is below the film. Extensive bilateral infiltrates are unchanged. There is no pneumothorax. IMPRESSION: OG tube advanced compared to the prior study of earlier today, tip now is below the film. Extensive infiltrates are unchanged. No new finding otherwise. Dictated by: Dictated on workstation # [id number]
--- NOTE | 2021-02-01 13:17 | Tele-ICU Progress Note ---
Subjective Date Seen by a Provider: Feb 01, 2021 Time Seen by a Provider: 13:12 Subjective/Events-last exam drop in SpO2, may have aspirated from high NG tube, SpO2 form low 70's to hi 80's, CXR today diffuse infiltrates, OG has been re positioned Sepsis Event Evaluation Height, Weight, BMI Height: '" Weight: lbs. oz. kg; 17.01 BMI Method: Focused Exam Lactate Level 01/30/21 08:45: Lactic Acid Level 1.62 Exam Exam Patient acknowledged, consented, and participated in this virtual visit which was conducted using real time audio/video Vital Signs Date Time Temp Pulse Resp B/P (MAP) Pulse Ox O2 Delivery O2 Flow Rate FiO2 02/01/21 12:05 123 105/60 02/01/21 11:42 Mechanical Ventilator 65 02/01/21 10:38 123 26 89 65 02/01/21 10:00 128 27 104/70 (81) 90 Mechanical Ventilator 02/01/21 09:00 128 25 108/67 (81) 90 Mechanical Ventilator 02/01/21 08:09 37.2 02/01/21 08:00 126 27 99/63 (75) 92 Mechanical Ventilator 02/01/21 08:00 Mechanical Ventilator 65 02/01/21 07:00 121 26 99/62 (74) 93 Mechanical Ventilator 02/01/21 07:00 121 02/01/21 06:35 122 26 97 65 02/01/21 06:00 113 25 103/70 (81) 99 Mechanical Ventilator 65.00 02/01/21 05:00 104 28 96/61 (73) 95 Mechanical Ventilator 65.00 02/01/21 04:00 Mechanical Ventilator 65 02/01/21 04:00 105 24 98/60 (73) 96 Mechanical Ventilator 65.00 02/01/21 04:00 36.1 65.00 02/01/21 03:00 103 25 96/59 (71) 95 Mechanical Ventilator 65.00 02/01/21 02:51 102 24 98 65 02/01/21 02:11 98 96/61 02/01/21 02:00 36.9 100 24 96/59 (71) 98 Mechanical Ventilator 65.00 02/01/21 01:00 96 02/01/21 01:00 96 22 90/58 (69) 95 Mechanical Ventilator 80.00 02/01/21 00:07 36.9 96 24 91/63 (72) 98 Mechanical Ventilator 80.00 01/31/21 23:59 Mechanical Ventilator 80 01/31/21 23:00 101 20 95/61 (72) 95 Mechanical Ventilator 80.00 01/31/21 22:16 102 23 95 80 01/31/21 22:00 107 25 102/62 (75) 95 Mechanical Ventilator 80.00 01/31/21 21:00 110 27 96/60 (72) 93 Mechanical Ventilator 80.00 01/31/21 20:36 36.1 01/31/21 20:06 38.1 01/31/21 20:00 Mechanical Ventilator 80 01/31/21 20:00 36.0 96/67 (77) 99 80.00 01/31/21 19:12 38.1 01/31/21 19:00 115 30 99/66 (77) 94 Mechanical Ventilator 80.00 01/31/21 19:00 115 01/31/21 18:26 100/66 01/31/21 18:18 111 30 94 80 01/31/21 18:00 112 23 93/87 (89) 94 Mechanical Ventilator 80.00 01/31/21 17:00 110 27 98/75 (83) 96 Mechanical Ventilator 80.00 01/31/21 16:04 36.6 01/31/21 16:00 Mechanical Ventilator 80.00 01/31/21 16:00 105 25 96/67 (77) 99 01/31/21 16:00 80 01/31/21 16:00 Mechanical Ventilator 80 01/31/21 15:00 101 23 92/66 (75) 88 Mechanical Ventilator 100.00 01/31/21 14:00 105 19 88/61 (70) 88 Mechanical Ventilator 100.00 01/31/21 13:15 130 14 98 100 I & O 02/01/21 07:00 Intake Total 3170 ml Output Total 1900 ml Balance 1270 ml Height & Weight Height: '" Weight: lbs. oz. kg; 17.01 BMI Method: General Appearance: Thin, Other (clinically ill appearing) HEENT: PERRL/EOMI, Moist Mucous Membranes; No Scleral Icterus (L), No Scleral Icterus (R) Neck: Normal Inspection, Supple Respiratory: Decreased Breath Sounds, Rhonci, Other (on BiPAP) Cardiovascular: Regular Rate, Rhythm, No Murmur Capillary Refill: Less Than 3 Seconds Gastrointestinal: non tender, soft Extremity: No Calf Tenderness, No Pedal Edema Neurologic/Psychiatric: Alert (with physicial/verbal stimuli otherwise quite drowsy) Skin: Normal Color, Warm/Dry Results Lab Laboratory Tests 01/31/21 03:40 02/01/21 02:55 Assessment/Plan Assessment/Plan taylor ARDS from extensive COVID, will raise rate to 20 and FiO2 to 100% ,leave on PEEP 14 peak Paw in 40's will add Nimbex Critical Care: Critically Ill Patient Time spent with patient (mins): 20 JEREMY RODRIGUEZ MD Feb 01, 2021 13:17
[2021-02-01] MEDS ORDERED: CISATRACURIUM 2MG/ML (NIMBEX) 10ML VIAL IV ONE (13:30)
[2021-02-01] MEDS ORDERED: CISATRACURIUM INJECTION 100 MG in NS (IVPB) 200 ML IV SCH (13:30)
[2021-02-01] MEDS: CISATRACURIUM INJECTION 100 MG in NS (IVPB) 200 ML IV SCH (13:35)
[2021-02-01 13:43] LABS: ABG BASE EXCESS -2.5 MMOL/L (-2.5-2.5); ABG OXYGEN SATURATION 94 % (94-100); ABG PCO2 47 MMHG (35-45); ABG PO2 115 MMHG (79-93); ABG TCO2 23.9 MMOL/L (21.0-31.0)
[2021-02-01] MEDS ORDERED: NS IV 1000 ML 1,000 ML ONE (13:43)
[2021-02-01 13:45] LABS: ABG PH 7.31 (7.37-7.43)
[2021-02-01 13:46] LABS: ALLENS TEST POS; INSPIRED O2 100%; PATIENT TEMP 38.3; VENTILATOR YES
[2021-02-01 14:24] LABS: AMPHETAMINE SCREEN, URINE POSITIVE (NEGATIVE); BARBITURATE SCREEN URINE NEGATIVE (NEGATIVE); BENZODIAZEPINES SCREEN URINE NEGATIVE (NEGATIVE); CANNABINOID SCREEN, URINE NEGATIVE (NEGATIVE); COCAINE SCREEN URINE NEGATIVE (NEGATIVE); METHADONE STAT NEGATIVE (NEGATIVE); METHAMPHETAMINE SCREEN URINE S POSITIVE (NEGATIVE); OPIATE SCREEN URINE NEGATIVE (NEGATIVE); OXYCODONE STAT NEGATIVE (NEGATIVE); PROPOXYPHENE STAT NEGATIVE (NEGATIVE); TRICYCLIC ANTIDEPRESSANTS SCRE NEGATIVE (NEGATIVE)
--- NOTE | 2021-02-01 14:48 | Anesthesia-Procedure Note ---
Procedures/Interventions Procedure Start/Stop/Diagnosis Date of Procedure: Feb 01, 2021 Start Time: 13:50 Stop Time: 14:35 Additional Procedures Procedures Multiple A-line attempts L and R side with and without US. Unsuccessful. DYLAN CARSON CRNA Feb 01, 2021 14:48
[2021-02-01] MEDS ORDERED: NOREPINEPHRINE 8 MG/250 ML 250 ML IV ONE ×3 (15:26→22:26)
[2021-02-01] MEDS ORDERED: FUROSEMIDE 40 MG/4 ML INJ (LASIX) IVP NR (15:30)
[2021-02-01] MEDS: NOREPINEPHRINE 8 MG/250 ML 250 ML IV SCH ×3 (15:35→22:54)
--- NOTE | 2021-02-01 15:36 | Diagnostic Imaging Report ---
INDICATION: Respiratory distress COMPARISON with an exam earlier this same date. FINDINGS: An ET tube is in the midthoracic trachea, an OG catheter in the stomach. There is a right IJ catheter at the lower SVC placed without pneumothorax. Severe 5 lobed airspace disease and at least small left greater than right pleural effusions are unchanged. IMPRESSION: Newly placed right IJ catheter in good position without pneumothorax. Pleural fluid and severe 5 lobed airspace disease as well as remaining support apparatus stable. Dictated by: Dictated on workstation # [id number]
--- NOTE | 2021-02-01 15:39 | Progress Note - Hospitalist ---
Subjective HPI/CC On Admission Date Seen by Provider: Feb 01, 2021 Time Seen by Provider: 08:50 Pt is a 40yoCF with no significant past medical history of who presented to the ER due to SOB. He was diagnosed with COVID on 01/28 in the ER and was scheduled for Regeneron on Monday but started to feel worse prior to that and called EMS to bring him in for evaluation.He presented on non rebreather but was transitioned to HFNC at 4lpm. His symptoms started roughly 7 days ago. He is unvaccinated against COVID. He is being admitted for further management. Subjective/Events-last exam He is intubated and sedated. Focused Exam Lactate Level 01/30/21 08:45: Lactic Acid Level 1.62 Objective Exam Vital Signs Vital Signs Date Time Temp Pulse Resp B/P (MAP) Pulse Ox O2 Delivery O2 Flow Rate FiO2 02/01/21 14:15 138 20 94 100 02/01/21 13:00 108/66 (80) Mechanical Ventilator 02/01/21 08:09 37.2 02/01/21 06:00 65.00 Capillary Refill : Less Than 3 Seconds General Appearance: Cachetic, Moderate Distress Respiratory: Crackles, Respiratory Distress (Tachypnea), Other (Intubated and mechanically ventilated) Gastrointestinal: Normal Bowel Sounds, Soft Extremity: Normal Inspection, No Pedal Edema Neurologic/Psychiatric: Other (Sedated) Skin: Normal Color, Warm/Dry, Tattoos/Piercings Results/Procedures Lab Laboratory Tests 02/01/21 02:55 Patient resulted labs reviewed. Imaging: Reviewed Imaging Report Assessment/Plan Assessment and Plan Assess & Plan/Chief Complaint Acute respiratory distress syndrome due to COVID-19 Bacterial pneumonia Methamphetamine abuse Alcohol abuse Leukopenia Severe protein-calorie malnutrition TeleICU consulted, appreciate assistance High ventilator requirements, now requiring paralysis Continue Decadron Convalescent plasma ordered, awaiting arrival Sputum culture with strep pneumonia Procalcitonin significantly elevated Begin cefepime Blood cultures with no growth to date Urine drug screen positive for methamphetamines Check HIV DVT prophylaxis: Lovenox Critical Care Critically Ill Patient Diagnosis/Problems Diagnosis/Problems (1) Acute respiratory distress syndrome (ARDS) due to COVID-19 virus Status: Acute (2) Bacterial pneumonia Status: Acute (3) Leukopenia Status: Acute Qualifiers: Leukopenia type: unspecified Qualified Codes: D72.819 - Decreased white blood cell count, unspecified (4) Alcohol abuse Status: Acute (5) Methamphetamine abuse Status: Acute (6) Severe protein-calorie malnutrition Status: Acute (7) Endotracheally intubated Status: Acute GABRIELLA POST MD Feb 01, 2021 15:39
[2021-02-01] MEDS ORDERED: NS IV 500 ML 500 ML ONE (15:42)
[2021-02-01] MEDS: ACETAMINOPHEN 325 MG TABLET PO PRN (15:53)
--- NOTE | 2021-02-01 16:44 | Consultation - Surgery ---
History of Present Illness History of Present Illness Patient Consulted On(roly/time) 02/01/21 14:36 Date Seen by Provider: Feb 01, 2021 Time Seen by Provider: 14:36 History of Present Illness Consult requested by Dr. Cherry for Central line/Art line. Patient is a 40 year old male that was admitted on 01/30/21 for Acute respiratory failure. Covid positive and continued to worsen. Now intubated and sedated. Needing arterial line and central line placed. Patient unable to provide any information. Chart reviewed. Allergies and Home Medications Allergies Coded Allergies: No Known Drug Allergies (Unverified , 01/30/21) Home Medications Acetaminophen 325 Mg Tablet, 650 MG PO Q6H PRN for PAIN-MILD (1-4), (Reported) Last Action: Reviewed Azithromycin 250 Mg Tablet, 250 MG PO UD, (Reported) TAKE 2 TABLETS ON DAY ONE THEN TAKE 1 TABLET DAILY FOR FOUR MORE DAYS Last Action: Reviewed Famotidine 10 Mg Tablet, 10 MG PO DAILY PRN for HEARTBURN, (Reported) Last Action: Reviewed Patient Home Medication List Home Medication List Reviewed: Yes Past Muqmfup-Aitspt-Qfntar Hx Patient Social History Drug of Choice: MARIJUANA, METH Smoking Status: Never a Smoker Type Used: Cigarettes Alcohol Use?: No Have you traveled recently?: No Surgeries History of Surgeries: No Respiratory History of Respiratory Disorde: No Cardiovascular History of Cardiac Disorders: No Neurological History of Neurological Disord: No Genitourinary History of Genitourinary Disor: No Gastrointestinal History of Gastrointestinal Di: No Musculoskeletal History of Musculoskeletal Dis: No Endocrine History of Endocrine Disorders: No HEENT History of HEENT Disorders: No Cancer History of Cancer: No Psychosocial History of Psychiatric Problem: No Reviewed Nursing Assessment Reviewed/Agree w Nursing PMH: Yes Family Medical History Significant Family History: No Pertinent Family Hx Review of Systems-General ROS-Unable to Obtain: Patient unable to provide, intubated/sedated. Physical Exam-General Problems Physical Exam Vital Signs Vital Signs - First Documented 01/30/21 01/30/21 01/30/21 08:33 08:55 11:39 Temp 39.0 Pulse 103 Resp 16 B/P (MAP) 117/79 (92) Pulse Ox 97 O2 Delivery Non Rebreather O2 Flow Rate 2.00 FiO2 36 Capillary Refill : Less Than 3 Seconds General Appearance: thin (ill appearing), other (intubated ) HEENT: PERRL/EOMI, normal ENT inspection Neck: non-tender, supple Respiratory: no respiratory distress, no accessory muscle use, other (equal chest rise.) Cardiovascular: regular rate, rhythm, no JVD Gastrointestinal: soft Rectal: deferred Back: normal inspection Extremities: normal inspection Neurologic/Psychiatric: No alert, No oriented x 3; other (intubated/sedated) Skin: normal color, warm/dry Lymphatic: no adenopathy Data Review Labs Laboratory Tests 01/31/21 17:05: Blood Gas Puncture Site L RADIAL, Blood Gas Patient Temperature 36.6, Arterial Blood pH 7.29*L, Arterial Blood Partial Pressure CO2 40, Arterial Blood Partial Pressure O2 49L, Arterial Blood HCO3 19L, Arterial Blood Total CO2 19.9L, Arterial Blood Oxygen Saturation 80L, Arterial Blood Base Excess -6.8L, Jey Test YES-POS, Blood Gas Ventilator Setting YES, Blood Gas Inspired Oxygen NA 01/31/21 18:00: Glucometer 89 02/01/21 02:35: D-Dimer 2.73H, Procalcitonin 39.52H 02/01/21 02:55: White Blood Count 1.5L, Red Blood Count 4.64, Hemoglobin 13.6, Hematocrit 42, Mean Corpuscular Volume 91, Mean Corpuscular Hemoglobin 29, Mean Corpuscular Hemoglobin Concent 32, Red Cell Distribution Width 13.5, Platelet Count 251, Mean Platelet Volume 9.9, Immature Granulocyte % (Auto) 0, Neutrophils (%) (Auto) 84H, Lymphocytes (%) (Auto) 12, Monocytes (%) (Auto) 3, Eosinophils (%) (Auto) 0, Basophils (%) (Auto) 1, Neutrophils # (Auto) 1.3L, Lymphocytes # (Auto) 0.2L, Monocytes # (Auto) 0.1, Eosinophils # (Auto) 0.0, Basophils # (Auto) 0.0, Immature Granulocyte # (Auto) 0.0, Sodium Level 140, Potassium Level 5.2H, Chloride Level 110H, Carbon Dioxide Level 21, Anion Gap 9, Blood Urea Nitrogen 15, Creatinine 0.77, Estimat Glomerular Filtration Rate > 60, BUN/Creatinine Ratio 19, Glucose Level 83, Calcium Level 7.0L, Corrected Calcium 8.4L, Phosphorus Level 3.3, Magnesium Level 2.4, Total Bilirubin 0.8, Aspartate Amino Transf (AST/SGOT) 72H, Alanine Aminotransferase (ALT/SGPT) 25, Alkaline Phosphatase 37L, Total Protein 4.8L, Albumin 2.3L 02/01/21 03:15: Blood Gas Puncture Site UNKNOWN, Blood Gas Patient Temperature 37, Arterial Blood pH 7.23*L, Arterial Blood Partial Pressure CO2 54H, Arterial Blood Partial Pressure O2 47L, Arterial Blood HCO3 22L, Arterial Blood Total CO2 23.6, Arterial Blood Oxygen Saturation 77L, Arterial Blood Base Excess -4.7L, Jey Test UNKNOWN, Blood Gas Ventilator Setting YES, Blood Gas Inspired Oxygen 90% 02/01/21 13:32: Blood Gas Puncture Site R RAD, Blood Gas Patient Temperature 38.3, Arterial Blood pH 7.31*L, Arterial Blood Partial Pressure CO2 47H, Arterial Blood Partial Pressure O2 115H, Arterial Blood HCO3 23, Arterial Blood Total CO2 23.9, Arterial Blood Oxygen Saturation 94, Arterial Blood Base Excess -2.5, Jey Test POS, Blood Gas Ventilator Setting YES, Blood Gas Inspired Oxygen 100% 02/01/21 13:49: Urine Opiates Screen NEGATIVE, Urine Oxycodone Screen NEGATIVE, Urine Methadone Screen NEGATIVE, Urine Propoxyphene Screen NEGATIVE, Urine Barbiturates Screen NEGATIVE, Ur Tricyclic Antidepressants Screen NEGATIVE, Urine Phencyclidine Screen NEGATIVE, Urine Amphetamines Screen POSITIVEH, Urine Methamphetamines Screen POSITIVEH, Urine Benzodiazepines Screen NEGATIVE, Urine Cocaine Screen NEGATIVE, Urine Cannabinoids Screen NEGATIVE Microbiology 01/31/21 Gram Stain - Final, Resulted 01/31/21 Sputum Culture - Preliminary, Resulted Probable Strep Pneumoniae 01/30/21 Blood Culture - Preliminary, Resulted No growth Assessment/Plan Assessment/Plan Assessment/Plan Poor venous access Acute respiratory distress syndrome due to COVID-19 Bacterial pneumonia Methamphetamine abuse Alcohol abuse Leukopenia Needing central line and arterial line placed to help with medical management. Right arterial u/s guided radial arterial line placed RIght IJ central line placed. Chest xray to check line placement. Will sign off call if needed. U/s guided right radial arterial line placement. Area as prepped in sterile fashion. Under u/s guidance the catheter and needle were inserted into the right radial artery and bright red blood returned. Wire inserted and catheter advance. Needle removed and catheter secured. U/s right IJ central line. Area was prepped and draped in sterile fashion. Under u/s guidance right IJ accessed, dark nonpulsatile blood returned. Wire inserted and needle removed. 11 blade was used to make skin incision and dilator was advanced over wire and removed. Triple lumen catheter advanced over wire and wire removed. Catheter secured and all ports accessed and flushed without d ifficulty. Then sterile bandage applied. Chest x ray pending. QUINN OVALLES DO Feb 01, 2021 16:44
[2021-02-01] MEDS: VASOPRESSIN INJECTION 20 UNIT in NS (IVPB) 100 ML IV SCH (18:59)
[2021-02-01 19:11] LABS: ABG BASE EXCESS -12.5 MMOL/L (-2.5-2.5); ABG OXYGEN SATURATION 73 % (94-100); ABG PO2 57 MMHG (79-93); ABG TCO2 19.5 MMOL/L (21.0-31.0)
[2021-02-01 19:12] LABS: ABG PH 6.98 (7.37-7.43)
[2021-02-01 19:13] LABS: ABG PCO2 80 MMHG (35-45); ALLENS TEST POSITIVE; INSPIRED O2 65%; PATIENT TEMP 38.4; VENTILATOR NO
--- NOTE | 2021-02-01 19:44 | Pulmonary Progress Note ---
Subjective Date Seen by a Provider: Feb 01, 2021 Time Seen by a Provider: 19:43 Sepsis Event Evaluation Height, Weight, BMI Height: '" Weight: lbs. oz. kg; 17.01 BMI Method: Focused Exam Lactate Level 01/30/21 08:45: Lactic Acid Level 1.62 Exam Exam Patient acknowledged, consented, and participated in this virtual visit which was conducted using real time audio/video Vital Signs Date Time Temp Pulse Resp B/P (MAP) Pulse Ox O2 Delivery O2 Flow Rate FiO2 02/01/21 19:26 37.9 134 20 96/43 89 Mechanical Ventilator 100 02/01/21 19:08 138 20 90 100 02/01/21 18:59 135 90/37 02/01/21 18:00 38.4 137 19 83/45 (58) 98 Mechanical Ventilator 02/01/21 17:00 138 22 84/40 (55) 97 Mechanical Ventilator 02/01/21 16:50 140 22 94/70 96 Mechanical Ventilator 100 02/01/21 16:35 140 23 88/43 94 Mechanical Ventilator 100 02/01/21 16:30 38.3 02/01/21 16:20 38.3 140 22 90/39 93 Mechanical Ventilator 100 02/01/21 16:05 38.7 140 20 92/41 95 Mechanical Ventilator 100 02/01/21 16:00 Mechanical Ventilator 100 02/01/21 16:00 140 20 86/44 (58) 98 Mechanical Ventilator 02/01/21 15:53 38.4 02/01/21 15:50 38.4 141 20 93/42 99 Mechanical Ventilator 100 02/01/21 15:35 141 80/46 02/01/21 14:15 138 20 94 100 02/01/21 14:00 135 21 103/63 (76) 84 02/01/21 13:00 134 27 108/66 (80) 89 Mechanical Ventilator 02/01/21 13:00 134 02/01/21 12:05 123 105/60 02/01/21 12:00 133 27 114/66 (82) 87 Mechanical Ventilator 02/01/21 11:42 Mechanical Ventilator 65 02/01/21 11:00 128 27 110/70 (83) 88 Mechanical Ventilator 02/01/21 10:38 123 26 89 65 02/01/21 10:00 128 27 104/70 (81) 90 Mechanical Ventilator 02/01/21 09:00 128 25 108/67 (81) 90 Mechanical Ventilator 02/01/21 08:09 37.2 02/01/21 08:00 126 27 99/63 (75) 92 Mechanical Ventilator 02/01/21 08:00 Mechanical Ventilator 65 02/01/21 07:00 121 26 99/62 (74) 93 Mechanical Ventilator 02/01/21 07:00 121 02/01/21 06:35 122 26 97 65 02/01/21 06:00 113 25 103/70 (81) 99 Mechanical Ventilator 65.00 02/01/21 05:00 104 28 96/61 (73) 95 Mechanical Ventilator 65.00 02/01/21 04:00 Mechanical Ventilator 65 02/01/21 04:00 105 24 98/60 (73) 96 Mechanical Ventilator 65.00 02/01/21 04:00 36.1 65.00 02/01/21 03:00 103 25 96/59 (71) 95 Mechanical Ventilator 65.00 02/01/21 02:51 102 24 98 65 02/01/21 02:11 98 96/61 02/01/21 02:00 36.9 100 24 96/59 (71) 98 Mechanical Ventilator 65.00 02/01/21 01:00 96 02/01/21 01:00 96 22 90/58 (69) 95 Mechanical Ventilator 80.00 02/01/21 00:07 36.9 96 24 91/63 (72) 98 Mechanical Ventilator 80.00 01/31/21 23:59 Mechanical Ventilator 80 01/31/21 23:00 101 20 95/61 (72) 95 Mechanical Ventilator 80.00 01/31/21 22:16 102 23 95 80 01/31/21 22:00 107 25 102/62 (75) 95 Mechanical Ventilator 80.00 01/31/21 21:00 110 27 96/60 (72) 93 Mechanical Ventilator 80.00 01/31/21 20:36 36.1 01/31/21 20:06 38.1 01/31/21 20:00 Mechanical Ventilator 80 01/31/21 20:00 36.0 96/67 (77) 99 80.00 I & O 02/01/21 07:00 Intake Total 3170 ml Output Total 1900 ml Balance 1270 ml Height & Weight Height: '" Weight: lbs. oz. kg; 17.01 BMI Method: General Appearance: Cachetic, Moderate Distress HEENT: PERRL/EOMI, Moist Mucous Membranes; No Scleral Icterus (L), No Scleral Icterus (R) Neck: Normal Inspection, Supple Respiratory: Crackles, Respiratory Distress (Tachypnea), Other (Intubated and mechanically ventilated) Cardiovascular: Regular Rate, Rhythm, No Murmur Capillary Refill: Less Than 3 Seconds Gastrointestinal: soft Extremity: Normal Inspection, No Pedal Edema Neurologic/Psychiatric: Other (Sedated) Skin: Normal Color, Warm/Dry, Tattoos/Piercings Results Lab Laboratory Tests 01/31/21 03:40 02/01/21 02:55 Assessment/Plan Assessment/Plan Acute hypoxemic hypercarbic resp failure -with severe metabolic and resp acidosis -start bicarb drip -abg in 1h review cxray/ labs dw bed side BONIFACIO Frost MD Feb 01, 2021 19:44
[2021-02-01] MEDS ORDERED: D5W 1000 ML IV SOLUTION 1,000 ML IV SCH (19:45)
[2021-02-01 20:15] LABS: CREATININE SERUM 2.87 MG/DL (0.60-1.30); POTASSIUM 5.7 MMOL/L (3.6-5.0)
[2021-02-01] MEDS: SODIUM BICARBONATE 8.4% VIAL 150 MEQ in D5W 1000 ML IV SOLUTION 1,000 ML IV SCH (20:33)
[2021-02-01] MEDS ORDERED: NS (IVPB) 250 ML ONE ×3 (20:43→22:39)
[2021-02-01] MEDS ORDERED: PHENYLEPHRINE INJ 10 MG/ML (FOR DRIP KITS ONLY) ONE ×3 (20:43→21:44)
[2021-02-01] MEDS ORDERED: PHENYLEPHRINE INJECTION 20 MG in NS (IVPB) 250 ML IV SCH (20:45)
[2021-02-01 21:19] LABS: ABG OXYGEN SATURATION 70 % (94-100); ABG PCO2 58 MMHG (35-45); ABG PO2 48 MMHG (79-93); ABG TCO2 14.8 MMOL/L (21.0-31.0)
[2021-02-01 21:21] LABS: ALLENS TEST ART LINE; INSPIRED O2 100%; PATIENT TEMP 100.8; VENTILATOR YES
[2021-02-01 21:22] LABS: ABG PH 6.99 (7.37-7.43)
[2021-02-01] MEDS ORDERED: EPINEPHrine (OMNICELL DRIP KIT ONLY) 1 MG/ML AMP ONE (22:38)
[2021-02-01] MEDS ORDERED: EPINEPHrine 1 MG INJECTION 8 MG in NS (IVPB) 242 ML IV SCH (22:45)
[2021-02-01] MEDS ORDERED: SODIUM CHLORIDE IV SCH ×2 (23:00)
[2021-02-01] MEDS ORDERED: PHENYLEPHRINE IV SCH ×2 (23:00)
[2021-02-01] MEDS ORDERED: DEXTROSE 50% 50 ML (IMS) SYR ONE (23:30)
[2021-02-01] MEDS: PHENYLEPHRINE IV SCH ×2 (23:41)
[2021-02-01] MEDS: SODIUM CHLORIDE IV SCH ×2 (23:41)
[2021-02-01] MEDS ORDERED: DEXTROSE 50% 50 ML (IMS) SYR IV ONE (23:45)
[2021-02-02] VITALS (15 sets, daily range): BP systolic 97–123; BP diastolic 59–66
[2021-02-02] MEDS: EPINEPHRINE IV SCH ×4 (00:16→05:50)
[2021-02-02] MEDS: SODIUM CHLORIDE IV SCH ×10 (00:16→09:14)
[2021-02-02 00:24] LABS: ABG BASE EXCESS -21.6 MMOL/L (-2.5-2.5); ABG OXYGEN SATURATION 85 % (94-100); ABG PCO2 49 MMHG (35-45); ABG PO2 66 MMHG (79-93); ABG TCO2 10.3 MMOL/L (21.0-31.0)
[2021-02-02 00:26] LABS: ALLENS TEST ARTLINE; INSPIRED O2 100%; PATIENT TEMP 37; VENTILATOR YES
[2021-02-02 00:28] LABS: ABG PH 6.89 (7.37-7.43)
[2021-02-02] MEDS ORDERED: NOREPINEPHRINE 8 MG/250 ML 250 ML IV ONE ×4 (00:42→09:17)
[2021-02-02] MEDS: CISATRACURIUM INJECTION 100 MG in NS (IVPB) 200 ML IV SCH (00:49)
[2021-02-02] MEDS: LACTATED RINGERS 1,000 ML IV SCH ×2 (00:53→09:25)
[2021-02-02] MEDS: NOREPINEPHRINE 8 MG/250 ML 250 ML IV SCH ×4 (01:36→09:19)
[2021-02-02] MEDS: RT-ALBUTEROL INHALER HFA (VENTOLIN HFA) 18 GM IH SCH ×3 (02:06→09:58)
[2021-02-02] MEDS: VASOPRESSIN INJECTION 20 UNIT in NS (IVPB) 100 ML IV SCH ×2 (02:36→10:31)
[2021-02-02] MEDS: PHENYLEPHRINE IV SCH ×6 (02:47→09:14)
[2021-02-02] MEDS: PROPOFOL DRIP (ICU) 100 ML IV SCH (03:50)
[2021-02-02] MEDS: SODIUM BICARBONATE 8.4% VIAL 150 MEQ in D5W 1000 ML IV SOLUTION 1,000 ML IV SCH ×2 (03:50→09:33)
[2021-02-02 03:53] LABS: ABG BASE EXCESS -21.9 MMOL/L (-2.5-2.5); ABG OXYGEN SATURATION 84 % (94-100); ABG PCO2 47 MMHG (35-45); ABG PO2 63 MMHG (79-93); ABG TCO2 10.1 MMOL/L (21.0-31.0); HEMOGLOBIN 11.7 g/dL (13.3-17.7)
[2021-02-02 03:54] LABS: ALLENS TEST ART LINE; INSPIRED O2 100%; PATIENT TEMP 36.4; VENTILATOR YES
[2021-02-02 03:55] LABS: ABG PH 6.88 (7.37-7.43); BASOPHILS # (AUTO) 0.1 10^3/uL (0.0-0.1); BASOPHILS % (AUTO) 1 % (0-10); EOSINOPHILS % (AUTO) 0 % (0-10); HEMATOCRIT 38 % (40-54); LYMPHOCYTES # (AUTO) 0.5 10^3/uL (1.0-4.0); LYMPHOCYTES % (AUTO) 5 % (12-44); MEAN CORPUSCULAR HEMOGLOBIN 30 pg (25-34); MEAN CORPUSCULAR HGB CONC 31 g/dL (32-36); MEAN CORPUSCULAR VOLUME 97 fL (80-99); MEAN PLATELET VOLUME 11.4 fL (9.0-12.2); MONOCYTES # (AUTO) 0.2 10^3/uL (0.0-1.0); MONOCYTES % (AUTO) 2 % (0-12); NEUTROPHILS # (AUTO) 7.7 10^3/uL (1.8-7.8); NEUTROPHILS % (AUTO) 91 % (42-75); PLATELET COUNT 108 10^3/uL (130-400); WHITE BLOOD COUNT 8.5 10^3/uL (4.3-11.0)
[2021-02-02 04:08] LABS: ALBUMIN 1.2 GM/DL (3.2-4.5); POTASSIUM 4.8 MMOL/L (3.6-5.0)
[2021-02-02 04:12] LABS: BILIRUBIN,TOTAL 1.1 MG/DL (0.1-1.0)
[2021-02-02 04:14] LABS: CREATININE SERUM 2.75 MG/DL (0.60-1.30); PHOSPHORUS 8.4 MG/DL (2.3-4.7)
[2021-02-02 04:17] LABS: MAGNESIUM 2.5 MG/DL (1.6-2.4)
[2021-02-02] MEDS: KCL 20 MEQ TAB (K-DUR) PO SCH (04:20)
[2021-02-02] MEDS: POTASSIUM CL 10MEQ/50ML IVPB 50 ML IV SCH (04:20)
[2021-02-02] MEDS: MAGNESIUM 1 GM/100 ML IVPB 100 ML IV SCH (04:20)
[2021-02-02 04:22] LABS: CALCIUM 4.4 MG/DL (8.5-10.1)
[2021-02-02] MEDS: CEFEPIME INJECTION 1,000 MG in WATER (STERILE) FOR INJECTION 10 ML IV SCH (05:47)
[2021-02-02] MEDS ORDERED: ALBUMIN 25% 25 GM/100 ML 100 ML IV ONE (08:00)
[2021-02-02] MEDS ORDERED: FUROSEMIDE 40 MG/4 ML INJ (LASIX) IVP ONE (08:15)
[2021-02-02] MEDS ORDERED: CALCIUM GLUCONATE 10% INJ 4.65 MEQ in NS (IVPB) 50 ML IV ONE ×2 (08:15→08:45)
--- NOTE | 2021-02-02 08:21 | Tele-ICU Progress Note ---
Subjective Date Seen by a Provider: Feb 02, 2021 Time Seen by a Provider: 08:21 Sepsis Event Evaluation Height, Weight, BMI Height: '" Weight: lbs. oz. kg; 17.01 BMI Method: Focused Exam Lactate Level 02/01/21 21:10: Lactic Acid Level 7.99*H 02/02/21 00:14: Lactic Acid Level 12.29*H 02/02/21 03:46: Lactic Acid Level 10.46*H Exam Exam Patient acknowledged, consented, and participated in this virtual visit which was conducted using real time audio/video Vital Signs Date Time Temp Pulse Resp B/P (MAP) Pulse Ox O2 Delivery O2 Flow Rate FiO2 02/02/21 07:56 35.7 02/02/21 06:35 105 30 100 02/02/21 06:30 105 02/02/21 06:22 106/63 02/02/21 06:00 109 29 102/63 (76) Mechanical Ventilator 100.00 02/02/21 05:52 104/64 02/02/21 05:00 111 30 116/65 (82) Mechanical Ventilator 100.00 02/02/21 04:07 36.4 02/02/21 04:05 Mechanical Ventilator 100 02/02/21 04:00 112 30 108/66 (80) Mechanical Ventilator 100.00 02/02/21 03:51 113 113/64 02/02/21 03:50 116/65 02/02/21 03:00 113 30 113/64 (80) 91 Mechanical Ventilator 100.00 02/02/21 02:47 110/69 02/02/21 02:36 108/68 02/02/21 02:06 115 30 100 02/02/21 02:00 115 29 108/65 (79) Mechanical Ventilator 100.00 02/02/21 01:36 110/68 02/02/21 01:00 116 02/02/21 01:00 116 30 110/65 (80) Mechanical Ventilator 100.00 02/02/21 00:00 116 30 114/66 (82) Mechanical Ventilator 100.00 02/01/21 23:55 38.2 02/01/21 23:54 Mechanical Ventilator 100 02/01/21 23:41 105/63 02/01/21 23:00 118 29 89/55 (66) 84 Mechanical Ventilator 100.00 02/01/21 22:54 83/51 02/01/21 22:17 112 30 100 02/01/21 22:00 113 29 81/47 (58) 82 Mechanical Ventilator 100.00 02/01/21 21:08 83/44 02/01/21 21:02 79/45 02/01/21 21:00 120 30 83/45 (58) 83 Mechanical Ventilator 100.00 02/01/21 20:00 Mechanical Ventilator 100 02/01/21 20:00 131 20 87/46 (60) 68 Mechanical Ventilator 100.00 02/01/21 19:55 86/45 02/01/21 19:26 37.9 134 20 96/43 89 Mechanical Ventilator 100 02/01/21 19:08 138 20 90 100 02/01/21 19:00 135 02/01/21 19:00 135 19 92/39 (56) 91 Mechanical Ventilator 100.00 02/01/21 18:59 135 90/37 02/01/21 18:00 38.4 137 19 83/45 (58) 98 Mechanical Ventilator 02/01/21 17:00 138 22 84/40 (55) 97 Mechanical Ventilator 02/01/21 16:50 140 22 94/70 96 Mechanical Ventilator 100 02/01/21 16:35 140 23 88/43 94 Mechanical Ventilator 100 02/01/21 16:30 38.3 02/01/21 16:20 38.3 140 22 90/39 93 Mechanical Ventilator 100 02/01/21 16:05 38.7 140 20 92/41 95 Mechanical Ventilator 100 02/01/21 16:00 Mechanical Ventilator 100 02/01/21 16:00 140 20 86/44 (58) 98 Mechanical Ventilator 02/01/21 15:53 38.4 02/01/21 15:50 38.4 141 20 93/42 99 Mechanical Ventilator 100 02/01/21 15:35 141 80/46 02/01/21 15:00 140 19 119/65 (83) 85 Mechanical Ventilator 02/01/21 14:15 138 20 94 100 02/01/21 14:00 135 21 103/63 (76) 84 02/01/21 13:00 134 27 108/66 (80) 89 Mechanical Ventilator 02/01/21 13:00 134 02/01/21 12:05 123 105/60 02/01/21 12:00 133 27 114/66 (82) 87 Mechanical Ventilator 02/01/21 11:42 Mechanical Ventilator 65 02/01/21 11:00 128 27 110/70 (83) 88 Mechanical Ventilator 02/01/21 10:38 123 26 89 65 02/01/21 10:00 128 27 104/70 (81) 90 Mechanical Ventilator 02/01/21 09:00 128 25 108/67 (81) 90 Mechanical Ventilator I & O 02/02/21 07:00 Intake Total 2260 ml Output Total 319 ml Balance 1941 ml Height & Weight Height: '" Weight: lbs. oz. kg; 17.01 BMI Method: General Appearance: Cachetic, Moderate Distress HEENT: PERRL/EOMI, Moist Mucous Membranes; No Scleral Icterus (L), No Scleral Icterus (R) Neck: Normal Inspection, Supple Respiratory: Crackles, Respiratory Distress (Tachypnea), Other (Intubated and mechanically ventilated) Cardiovascular: Regular Rate, Rhythm, No Murmur Capillary Refill: Less Than 3 Seconds Gastrointestinal: soft Extremity: Normal Inspection, No Pedal Edema Neurologic/Psychiatric: Other (Sedated) Skin: Normal Color, Warm/Dry, Tattoos/Piercings Results Lab Laboratory Tests 02/01/21 02:55 02/01/21 19:35 02/02/21 03:47 Assessment/Plan Assessment/Plan (Tele-ICU Physician , Progress Note ) Available chart/ vitals / labs / Images reviewed Video assessment done using teleICU camera, rest of exam as per RN Discussed with RN Events overnight : pressors vent change paralysis afebrile hemodynamically stable, no pressors, I/O = pos 2200 Drips: levo , vaso , epi, VENT SETTINGS. ac 30 tv430 -- 100% peep 18 PAP 50 ABG reviewed Sedation: RASS - -3, prop 37 , fentanyl 20 Not candidate for SBTContraindications : Cardiovascular Stability / Sedation Score / FI02/PEEP / ABG / CXR As per RN exam : discussed Consultants: Hospital course: 01/31) 40/M- COVID Pna. bipap 100%. Incr. cxr infiltrates from ER visit and (+) covid in ER 7-15. Not vaccinated. (01/31) Intubated- ac 14 tv440 -- 65% peep 10 PAP 22 02/01 - changes to ac 16 tv440 -- 65% peep 12 - desats -100% , pressors 02/02 ac 30 tv430 -- 100% peep 18 PAP 50 , 2 pressors , bicarb gtt A/P Acute resp failure - intubated 01/31 - ac 30 tv430 -- 100% peep 18 PAP 50 - not prone - too unstable positive balance - despite lasix - DOMINIC DOMINIC with severe met acidosis _ lactic acidosis - on bicarnb gtt , oliguric , HD not bailable a@ this facility - will try large dose of lasix + albumin x1 Shock - on 4 pressorss Ischemic hepatitis - monitor Covid PNA - steroids IV bact PNA - sputum with strep pneum 01/31 - on abx PNA - high elev PCT - abx initialed - CX _ strep pneumo -leukopenia - follow possible ETOH use , ? drug use - + methamphetamins/amphetamins - agree with tox screen - ? hepatitis and HIV check - as per PCP Lines : perriph , (Central Line Necessity Reviewed) [place]: + OG: + Nutrition: off - start TF by tomorrow Analgesia: Anxiety/ delirium VTE Prophylaxis: lovenox , adjusted to weight 47 kg Stress Ulcer Prophylaxis: ppi Glycemic Control: PROGNOSIS IS VERY POOR , AGREE WITH PALLIATIVE CONSULT Plans in collaboration with bedside consultants and IM MDs. Discussed with RN to reach out if any questions or concerns A total of 37 minutes of critical care time was devoted to this patient today, required to treat and/or prevent further deterioration of critical care condition ( as above DEYANIRA TROY MD Feb 02, 2021 08:21
[2021-02-02] MEDS: PANTOPRAZOLE 40 MG (PROTONIX) VIAL IV SCH (08:49)
[2021-02-02] MEDS: fentaNYL DRIP PRE-MIX 250 ML IV SCH (09:36)
[2021-02-02 09:52] LABS: ABG OXYGEN SATURATION 80 % (94-100); ABG PCO2 51 MMHG (35-45); ABG PO2 54 MMHG (79-93); ABG TCO2 11.2 MMOL/L (21.0-31.0)
[2021-02-02 10:00] LABS: ABG PH 6.89 (7.37-7.43); INSPIRED O2 100%
[2021-02-02 10:01] LABS: PATIENT TEMP 35.9
[2021-02-02] MEDS ORDERED: LORazepam INJ 2 MG/ML (ATIVAN) VIAL IVP PRN (10:45)
[2021-02-02] MEDS ORDERED: ACETAMINOPHEN 650 MG SUPP (TYLENOL) PR PRN (10:45)
[2021-02-02] MEDS ORDERED: morphine INJ 4 MG/ML 1 ML (VIAL/SYRINGE) IV PRN (10:45)
[2021-02-02] MEDS ORDERED: RT-ALBUTEROL/IPRATROPIUM 3 ML (DUONEB) VIAL INH PRN (10:45)
[2021-02-02] MEDS ORDERED: PROMETHAZINE INJ 25 MG/ML (PHENERGAN) AMP IVP PRN (10:45)
[2021-02-02] MEDS ORDERED: ONDANSETRON 4 MG/2 ML (SDV) Z0FRAN IVP PRN (10:45)
[2021-02-02] MEDS ORDERED: BISACODYL 10 MG SUPP (DULCOLAX) PR PRN (10:45)
[2021-02-02] MEDS ORDERED: SALIVA STIMULANT MOUTH SPRAY (BIOTENE) 1.5 OZ MM PRN (10:45)
[2021-02-02] MEDS ORDERED: ARTIFICAL TEARS 0.4 ML UNIT DOSE (REFRESH PLUS) OU PRN (10:45)
[2021-02-02] MEDS ORDERED: GLYCOPYRROLATE 0.2 MG/ML (ROBINUL) 2 ML VIAL IV PRN (10:45)
--- NOTE | 2021-02-02 13:47 | Discharge Summary ---
Discharge Summary Hospital Course Problems/Dx: (1) Septic shock Status: Acute (2) Acute respiratory distress syndrome (ARDS) due to COVID-19 virus Status: Acute (3) Bacterial pneumonia Status: Acute (4) Leukopenia Status: Acute Qualifiers: Qualified Codes: D72.819 - Decreased white blood cell count, unspecified (5) Alcohol abuse Status: Acute (6) Methamphetamine abuse Status: Acute (7) Severe protein-calorie malnutrition Status: Acute (8) Endotracheally intubated Status: Acute (9) Lactic acidosis Status: Acute (10) Shock liver Status: Acute (11) Acute kidney injury Status: Acute (12) Electrolyte abnormality Status: Acute Hospital Course Date of Admission: Jan 30, 2021 at 09:53 Admission Diagnosis : Family Physician/Provider: No,Local Physician Date of Discharge: 02/02/21 Discharge Diagnosis: [ ] Hospital Course: [ ] Labs and Pending Lab Test: Laboratory Tests 02/01/21 13:32: Blood Gas Puncture Site R RAD, Blood Gas Patient Temperature 38.3, Arterial Blood pH 7.31*L, Arterial Blood Partial Pressure CO2 47H, Arterial Blood Partial Pressure O2 115H, Arterial Blood HCO3 23, Arterial Blood Total CO2 23.9, Arterial Blood Oxygen Saturation 94, Arterial Blood Base Excess -2.5, Jey Test POS, Blood Gas Ventilator Setting YES, Blood Gas Inspired Oxygen 100% 02/01/21 13:49: Urine Opiates Screen NEGATIVE, Urine Oxycodone Screen NEGATIVE, Urine Methadone Screen NEGATIVE, Urine Propoxyphene Screen NEGATIVE, Urine Barbiturates Screen NEGATIVE, Ur Tricyclic Antidepressants Screen NEGATIVE, Urine Phencyclidine Screen NEGATIVE, Urine Amphetamines Screen POSITIVEH, Urine Methamphetamines S creen POSITIVEH, Urine Benzodiazepines Screen NEGATIVE, Urine Cocaine Screen NEGATIVE, Urine Cannabinoids Screen NEGATIVE 02/01/21 18:56: Blood Gas Puncture Site R RADIAL, Blood Gas Patient Temperature 38.4, Arterial Blood pH 6.98*L, Arterial Blood Partial Pressure CO2 80*H, Arterial Blood Partial Pressure O2 57L, Arterial Blood HCO3 17*L, Arterial Blood Total CO2 19.5L, Arterial Blood Oxygen Saturation 73L, Arterial Blood Base Excess -12.5L, Jey Test POSITIVE, Blood Gas Ventilator Setting NO, Blood Gas Inspired Oxygen 65% 02/01/21 19:35: Sodium Level 139, Potassium Level 5.7H, Chloride Level 111H, Carbon Dioxide Level 16L, Anion Gap 12, Blood Urea Nitrogen 36H, Creatinine 2.87#H, Estimat Glomerular Filtration Rate 24, BUN/Creatinine Ratio 13, Glucose Level 85, Calcium Level 7.0L 02/01/21 21:10: Blood Gas Puncture Site ARTLINE, Blood Gas Patient Temperature 100.8, Arterial Blood pH 6.99*L, Arterial Blood Partial Pressure CO2 58H, Arterial Blood Partial Pressure O2 48L, Arterial Blood HCO3 13*L, Arterial Blood Total CO2 14.8L, Arterial Blood Oxygen Saturation 70L, Arterial Blood Base Excess -16.0L, Jey Test ART LINE, Blood Gas Ventilator Setting YES, Blood Gas Inspired Oxygen 100%, Lactic Acid Level 7.99*H 02/01/21 23:28: Glucometer 61L 02/02/21 00:14: Blood Gas Puncture Site ARTLINE, Blood Gas Patient Temperature 37, Arterial Blood pH 6.89*L, Arterial Blood Partial Pressure CO2 49H, Arterial Blood Partial Pressure O2 66L, Arterial Blood HCO3 9*L, Arterial Blood Total CO2 10.3L, Arterial Blood Oxygen Saturation 85L, Arterial Blood Base Excess -21.6L, Jey Test ARTLINE, Blood Gas Ventilator Setting YES, Blood Gas Inspired Oxygen 100%, Lactic Acid Level 12.29*H 02/02/21 03:46: Lactic Acid Level 10.46*H 02/02/21 03:47: White Blood Count 8.5, Red Blood Count 3.85L, Hemoglobin 11.7L, Hematocrit 38L, Mean Corpuscular Volume 97, Mean Corpuscular Hemoglobin 30, Mean Corpuscular Hemoglobin Concent 31L, Red Cell Distribution Width 14.1, Platelet Count 108L, Mean Platelet Volume 11.4, Immature Granulocyte % (Auto) 1, Neutrophils (%) (Auto) 91H, Lymphocytes (%) (Auto) 5L, Monocytes (%) (Auto) 2, Eosinophils (%) (Auto) 0, Basophils (%) (Auto) 1, Neutrophils # (Auto) 7.7, Lymphocytes # (Auto) 0.5L, Monocytes # (Auto) 0.2, Eosinophils # (Auto) 0.0, Basophils # (Auto) 0.1, Immature Granulocyte # (Auto) 0.1, Percent Immature Platelet Fraction 8.8H, Blood Gas Puncture Site ARTLINE, Blood Gas Patient Temperature 36.4, Arterial Blood pH 6.88*L, Arterial Blood Partial Pressure CO2 47H, Arterial Blood Partial Pressure O2 63L, Arterial Blood HCO3 9*L, Arterial Blood Total CO2 10.1L, Arterial Blood Oxygen Saturation 84L, Arterial Blood Base Excess -21.9L, Jey Test ART LINE, Blood Gas Ventilator Setting YES, Blood Gas Inspired Oxygen 100%, Sodium Level 141, Potassium Level 4.8, Chloride Level 116H, Carbon Dioxide Level 6#*L, Anion Gap 19H, Blood Urea Nitrogen 34H, Creatinine 2.75H, Estimat Glomerular Filtration Rate 25, BUN/Creatinine Ratio 12, Glucose Level 173H, Calcium Level 4.4#*L, Corrected Calcium 6.6L, Phosphorus Level 8.4H, Magnesium Level 2.5H, Total Bilirubin 1.1H, Aspartate Amino Transf (AST/SGOT) 1658#H, Alanine Aminotransferase (ALT/SGPT) 454H, Alkaline Phosphatase 58, Total Protein 3.0L, Albumin 1.2L, Triglycerides Level 206H 02/02/21 08:42: Blood Gas Puncture Site RT RAD, Blood Gas Patient Temperature 35.9, Arterial Blood pH 6.89*L, Arterial Blood Partial Pressure CO2 51H, Arterial Blood Partial Pressure O2 54L, Arterial Blood HCO3 10*L, Arterial Blood Total CO2 11.2L, Arterial Blood Oxygen Saturation 80L, Arterial Blood Base Excess -21.0L, Jey Test NA, Blood Gas Ventilator Setting NA, Blood Gas Inspired Oxygen 100% Microbiology 02/01/21 Gram Stain, Resulted Pending 02/01/21 Sputum Culture - Preliminary, Resulted Probable Strep Pneumoniae 01/30/21 Blood Culture - Preliminary, Resulted No growth Home Meds Active Reported Tylenol (Acetaminophen) 325 Mg Tablet 650 Mg PO Q6H PRN Pepcid AC (Famotidine) 10 Mg Tablet 10 Mg PO DAILY PRN Azithromycin 250 Mg Tablet 250 Mg PO UD TAKE 2 TABLETS ON DAY ONE THEN TAKE 1 TABLET DAILY FOR FOUR MORE DAYS Assessment/Pt Instructions Patient Discharge Planning: <30 minutes discharge planning Discharge Instructions Discharge Diet: No Restrictions Activity as Tolerated: Yes Discharge Physical Examination Vital Signs Vital Signs Date Time Temp Pulse Resp B/P (MAP) Pulse Ox O2 Delivery O2 Flow Rate FiO2 02/02/21 11:55 35.6 02/02/21 11:00 104 29 113/60 (77) 86 Mechanical Ventilator 100.00 02/02/21 09:58 100 General Appearance: No Apparent Distress, Cachetic HEENT: Other (fixed dilated pupils) Respiratory: Crackles, Other (intubated) Cardiovascular: No Murmur, Tachycardia Gastrointestinal: Soft Extremity: Normal Inspection, No Pedal Edema Skin: Cool, Mottled Neurologic/Psychiatric: Other (obtunded, unresponsive) Allergies: Coded Allergies: No Known Drug Allergies (Unverified , 01/30/21) Discharge Summary Date of Admission Jan 30, 2021 at 09:53 Date of Discharge Discharge Date: Feb 02, 2021 Discharge Time: 12:08 Admission Diagnosis Acute respiratory failure due to COVID-19 Comfort Measures/ End of Life Care: Comfort Measures Date of : Feb 02, 2021 Time of : 12:08 Discharge Diagnosis Acute respiratory distress syndrome due to COVID-19, septic shock (1) Acute respiratory distress syndrome (ARDS) due to COVID-19 virus Status: Acute (2) Bacterial pneumonia Status: Acute (3) Leukopenia Status: Acute Qualifiers: Qualified Codes: D72.819 - Decreased white blood cell count, unspecified (4) Alcohol abuse Status: Acute (5) Methamphetamine abuse Status: Acute (6) Severe protein-calorie malnutrition Status: Acute (7) Endotracheally intubated Status: Acute (8) Septic shock Status: Acute (9) Lactic acidosis Status: Acute (10) Shock liver Status: Acute (11) Acute kidney injury Status: Acute (12) Electrolyte abnormality Status: Acute GABRIELLA POST MD Feb 02, 2021 13:43
== END 2021-02-02 12:08 | disposition expired | DRG 208 ==
LOC: ER 08:34 → INTOOBSV 09:53 → UNDOADMOB 09:53 → 4TH 09:53 → OBSVTOIN 09:53 → 4TH 09:53 → ICU 01-31 00:35 → 4TH 01-31 00:35 → UNDODISIN 02-02 15:04
PROVIDERS: ADMIT Family Medicine; ATTEND Family Medicine
PROC: XW033E5 Introduction of Remdesivir Anti-infective into Peripheral Vein, Percutaneous Approach, New Technology Group 5 (ICD-10-PCS; 2021-01-30)
PROC: 5A1945Z Respiratory Ventilation, 24-96 Consecutive Hours (ICD-10-PCS; principal; 2021-01-31)
PROC: 0BH17EZ Insertion of Endotracheal Airway into Trachea, Via Natural or Artificial Opening (ICD-10-PCS; 2021-01-31)
PROC: 5A09357 Assistance with Respiratory Ventilation, Less than 24 Consecutive Hours, Continuous Positive Airway Pressure (ICD-10-PCS; 2021-01-31)
PROC: XW13325 Transfusion of Convalescent Plasma (Nonautologous) into Peripheral Vein, Percutaneous Approach, New Technology Group 5 (ICD-10-PCS; 2021-02-01)
DX: U07.1 COVID-19 (principal); J12.82 Pneumonia due to coronavirus disease 2019; J15.9 Unspecified bacterial pneumonia; A41.9 Sepsis, unspecified organism; R65.21 Severe sepsis with septic shock; J80 Acute respiratory distress syndrome; E43 Unspecified severe protein-calorie malnutrition; K72.00 Acute and subacute hepatic failure without coma; Z68.1 Body mass index [BMI] 19.9 or less, adult; N17.9 Acute kidney failure, unspecified; G93.1 Anoxic brain damage, not elsewhere classified; E87.4 Mixed disorder of acid-base balance; Z73.0 Burn-out; E87.5 Hyperkalemia; Z51.5 Encounter for palliative care; Z66 Do not resuscitate; F15.10 Other stimulant abuse, uncomplicated; F10.10 Alcohol abuse, uncomplicated
CPT/HCPCS: 36415; 71045; 80048; 80053; 80306; 82805; 82947; 83605; 83735; 84100; 84145; 84478; 85007; 85025; 85027; 85379; 85610; 85730; 86703; 86900; 86901; 87040; 87070; 87077; 87184; 87205; 94002; 94003; 94640; 94660; 94760; 94799; 96374